=== PATIENT | male | born 1940 | race Caucasian/White ===

== ENCOUNTER 2017-10-25 14:30 | Emergency (ER) | payer OTHER ==
[~2017-10-25] VITALS: Ht 188 cm; Wt 110.2 kg
[~2017-10-25 14:30] MED LIST: ALPRTAB PO; HYT/2 PO; PROP10TA7 PO; SIMV20TA5 PO
[2017-10-25 14:47] VITALS: TEMP 36.6; Ht 188 cm; Wt 110.2 kg
[2017-10-25 15:22] LABS: BASO % 0.5 %; BASO ABS # 0.03 K/uL (0-0.2); COMPLETE YES; EOS % 4.4 %; HEMATOCRIT 43.1 % (42-52); LYMPH ABS # 1.83 K/uL (1.2-3.4); MEAN CELL VOLUME 87.6 fL (80-100); MEAN CORPUSCULAR HEMOGLOBIN 30.1 pg (25-34); MEAN CORPUSCULAR HGB CONC 34.3 g/dl (32-36); MEAN PLATELET VOLUME 10.2 fL (7.4-10.4); MONO % 7.9 %; NEUT % 55.2 %; PLATELET COUNT 157 K/uL (130-400); RED BLOOD COUNT 4.92 M/uL (4.7-6.1); WHITE BLOOD COUNT 5.72 K/uL (4.8-10.8)
--- NOTE | 2017-10-25 15:24 | DIAGNOSTIC IMAGING REPORT ---
CHEST ONE VIEW PORTABLE CLINICAL HISTORY: EVALUATE ALTERED MENTAL STATUS/WEAKNESS dyspnea COMPARISON STUDY: No previous studies for comparison. FINDINGS: Small parenchymal infiltrate left base. Mild emphysematous change. Slight peribronchial thickening possibly chronic. Diaphragms smooth. No evidence for cardiac enlargement. IMPRESSION: Small parenchymal infiltrate versus atelectasis left base. The above report was generated using voice recognition software. It may contain grammatical, syntax or spelling errors. Electronically signed by: Shoaib Dunn M.D. 10/25/2017 3:23 PM Dictated Date/Time: 10/25/2017 3:22 PM
[2017-10-25 15:30] LABS: PROTHROMBIN TIME (PATIENT) 10.9 SECONDS (9.0-12.0)
[2017-10-25] MEDS ORDERED: SODIUM CHLORIDE 0.9% 1000ML 1,000 ML IV STA (15:37)
[2017-10-25 15:40] LABS: ALT/SGPT 22 U/L (12-78); BLOOD UREA NITROGEN 18 mg/dl (7-18); BUN/CREATININE RATIO 14.2 (10-20); CALCIUM 8.9 mg/dl (8.5-10.1); CARBON DIOXIDE 26 mmol/L (21-32); CHLORIDE 104 mmol/L (98-107); CREATININE 1.25 mg/dl (0.60-1.40); GLUCOSE 166 mg/dl (70-99); MAGNESIUM 2.1 mg/dl (1.8-2.4); POTASSIUM 4.2 mmol/L (3.5-5.1); SODIUM 138 mmol/L (136-145)
--- NOTE | 2017-10-25 15:49 | EMERGENCY ROOM VISIT NOTE ---
History Report prepared by Jovani: Dottie Galvez Under the Supervision of: Dr. Mir Curry D.O. First contact with patient: 15:06 Chief Complaint: DIZZY Stated Complaint: DIZZINESS, NUMBNESS IN FACE ON LEFT Nursing Triage Summary: patient with veritgo and started meclizine. patient states he continues to have to veritgo and when he standing he feels "retarded" states he did not start having the verigo until her started taking xanax 1mg. did not take any last night to see if he was better with out it, no better this am. complains of numbness in the face as well. History of Present Illness The patient is a 77 year old male who presents to the Emergency Room with complaints of intermittent dizziness starting 1 month ago. The patient called his PCP and was told to go to the ED. The patient states that when he stands up , he cannot walk. He feels like he needs to put out his arms to support himself. This does not occur every day. He has never had this before. He feels that this started after his Xanax prescription was changed from 1.5 mg to 0.5 mg. He takes 1 mg at night and 0.5 mg in the morning. He has some left facial numbness at times. He denies any room spinning. He does not feel weak more on one side. He denies any headache, leg swelling or pain, abdominal pain. He does use smokeless tobacco. He has meclizine at home to take as needed. He has ringing in his ears all the time. Source of History: patient Onset: 1 month ago Position: other (global) Quality: other (dizziness) Timing: intermittent Modifying Factors (Worsening): other (standing up) Associated Symptoms: + numbness, No headache, No abdominal pain, No weakness Note: Pt denies leg swelling/pain. Review of Systems See HPI for pertinent positives & negatives. A total of 10 systems reviewed and were otherwise negative. Past Medical & Surgical Medical Problems: (1) High cholesterol Family History No pertinent family history stated. Social History Smoking Status: Former Smoker Smokeless Tobacco Use: Yes Marital Status: in relationship Occupation Status: retired Current/Historical Medications Scheduled Alprazolam (Alprazolam Xr), 0.5 MG PO QAM Alprazolam (Alprazolam Xr), 1 MG PO HS Propranolol (Inderal), 10 MG PO BID Simvastatin (Zocor), 20 MG PO HS Terazosin Hcl (Hytrin), 2 MG PO HS Scheduled PRN Meclizine Hcl (Meclizine Hcl), 25 MG PO TID PRN for Dizziness or Vertigo Allergies Coded Allergies: Aspirin (Verified Allergy, Intermediate, GI UPSET, 10/25/17) Physical Exam Vital Signs Date Time Temp Pulse Resp B/P (MAP) Pulse Ox O2 Delivery O2 Flow Rate FiO2 10/25/17 18:27 68 18 122/89 97 10/25/17 17:24 55 18 155/82 97 Room Air 10/25/17 16:12 52 10/25/17 15:54 56 16 139/80 96 Room Air 10/25/17 15:31 151/82 147/83 99/63 10/25/17 15:16 Room Air 10/25/17 15:16 Room Air 10/25/17 14:47 36.6 73 20 165/116 96 Room Air Physical Exam GENERAL: Patient is awake, alert, and in no acute distress. Patient is resting comfortably and showing no signs of anxiety EYES: The conjunctivae are clear. The pupils are round and reactive. EARS, NOSE, MOUTH AND THROAT: The nose is without any evidence of any deformity. Mucous membranes are moist tongue is midline NECK: The neck is nontender and supple. RESPIRATORY: Normal respiratory effort is noted there is no evidence of wheezing rhonchi or rales CARDIOVASCULAR: Regular rate and rhythm noted there no murmurs rubs or gallops normal S1 normal S2 GASTROINTESTINAL: The abdomen is soft. Bowel sounds are present in all quadrants. Abdomen is nontender MUSCULOSKELETAL/EXTREMITIES: There is no evidence of gross deformity full range of motion is noted in the hips and shoulders SKIN: There is trace pedal edema bilaterally. NEUROLOGIC: Patient is awake alert and oriented x3 strength is symmetric patellar reflexes are 2+ bilaterally Medical Decision & Procedures ER Provider Diagnostic Interpretation: X-ray results as stated below per interpretation by me and the radiologist. Radiology results as stated below per my review and radiologist interpretation: CHEST ONE VIEW PORTABLE CLINICAL HISTORY: EVALUATE ALTERED MENTAL STATUS/WEAKNESS dyspnea COMPARISON STUDY: No previous studies for comparison. FINDINGS: Small parenchymal infiltrate left base. Mild emphysematous change. Slight peribronchial thickening possibly chronic. Diaphragms smooth. No evidence for cardiac enlargement. IMPRESSION: Small parenchymal infiltrate versus atelectasis left base. The above report was generated using voice recognition software. It may contain grammatical, syntax or spelling errors. Electronically signed by: Shoaib Dunn M.D. 10/25/2017 3:23 PM Dictated Date/Time: 10/25/2017 3:22 PM HEAD WITHOUT CONTRAST (CT) CLINICAL HISTORY: 77 years-old Male with EVALUATE ALTERED MENTAL STATUS/WEAKNESS. Acute altered mental status with dizziness TECHNIQUE: Multiple axial CT images of the head were obtained without contrast. A dose lowering technique was utilized adhering to the principles of ALARA. CT DOSE: 835.71 mGycm COMPARISON: None. FINDINGS: No acute intracranial hemorrhage, midline shift, mass, large territorial ischemia or abnormal extra-axial collection. There is mild atrophy. Ill-defined areas of low attenuation within the subcortical white matter suggests chronic microvascular ischemic changes. The calvarium is intact. The mastoid air cells, and middle ear cavities are clear. There is mild mucosal thickening of the ethmoid and maxillary sinuses. 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 Soft tissues are unremarkable. IMPRESSION: No acute intracranial abnormality. The above report was generated using voice recognition software. It may contain grammatical, syntax or spelling errors. Electronically signed by: Alverto Cavanaugh M.D. 10/25/2017 5:02 PM Dictated Date/Time: 10/25/2017 5:[address] AND PELVIS CT WITHOUT CONTRAST CT DOSE: 1353.86 mGycm HISTORY: Acute dizziness dizzy TECHNIQUE: Multiaxial CT images of the abdomen and pelvis were performed without contrast. A dose lowering technique was utilized adhering to the principles of ALARA. COMPARISON STUDY: None. FINDINGS: Subsegmental groundglass and consolidative opacities of the inferior segment lingula suggest atelectasis and/or scarring. Mild dependent subsegmental bibasilar atelectasis. No pneumoperitoneum or pneumatosis identified. The imaged inferior cardiac chambers are mildly enlarged. Evaluation of the solid abdominal organs is limited without use of IV contrast. The liver, spleen, pancreas and right adrenal gland are unremarkable. There is an indeterminate soft tissue attenuating lesion of the left adrenal gland, 1.2 x 1.3 cm. Gallbladder is contracted. Low attenuating lesions of the kidneys bilaterally suggests cysts, largest measuring 8.8 x 6.5 cm within the interpolar left kidney. No renal calculi or hydronephrosis. Ureters and urinary bladder are unremarkable. Prostate is mildly enlarged. Moderate atherosclerosis of the aorta. Ectasia of the infrarenal abdominal aorta measures 2.7 x 2.7 cm. There is no bulky adenopathy identified. There is no bowel obstruction or focal bowel wall thickening. Moderate sigmoid diverticulosis without diverticulitis. Moderate stool volume suggests constipation. The appendix appears normal. Soft tissues are unremarkable. The bones appear intact. Degenerative changes are seen within the spine and hips. IMPRESSION: 1. No acute intra-abdominal or intrapelvic abnormality identified. Normal appendix. 2. Moderate sigmoid colon diverticulosis without diverticulitis. 3. Indeterminate 1.3 cm soft tissue attenuating left adrenal lesion. 4. Prostamegaly. 5. Additional findings as above. Electronically signed by: Alverto Cavanaugh M.D. 10/25/2017 5:17 PM Dictated Date/Time: 10/25/2017 5:11 PM Laboratory Results 10/25/17 15:08 Red Blood Count 4.92, Mean Corpuscular Volume 87.6, Mean Corpuscular Hemoglobin 30.1, Mean Corpuscular Hemoglobin Concent 34.3, Mean Platelet Volume 10.2, Neutrophils (%) (Auto) 55.2, Lymphocytes (%) (Auto) 32.0, Monocytes (%) (Auto) 7.9, Eosinophils (%) (Auto) 4.4, Basophils (%) (Auto) 0.5, Neutrophils # (Auto) 3.16, Lymphocytes # (Auto) 1.83, Monocytes # (Auto) 0.45, Eosinophils # (Auto) 0.25, Basophils # (Auto) 0.03 10/25/17 15:08 Test 10/25/17 15:08 10/25/17 16:00 White Blood Count 5.72 K/uL (4.8-10.8) Red Blood Count 4.92 M/uL (4.7-6.1) Hemoglobin 14.8 g/dL (14.0-18.0) Hematocrit 43.1 % (42-52) Mean Corpuscular Volume 87.6 fL (80-100) Mean Corpuscular Hemoglobin 30.1 pg (25-34) Mean Corpuscular Hemoglobin Concent 34.3 g/dl (32-36) Platelet Count 157 K/uL (130-400) Mean Platelet Volume 10.2 fL (7.4-10.4) Neutrophils (%) (Auto) 55.2 % Lymphocytes (%) (Auto) 32.0 % Monocytes (%) (Auto) 7.9 % Eosinophils (%) (Auto) 4.4 % Basophils (%) (Auto) 0.5 % Neutrophils # (Auto) 3.16 K/uL (1.4-6.5) Lymphocytes # (Auto) 1.83 K/uL (1.2-3.4) Monocytes # (Auto) 0.45 K/uL (0.11-0.59) Eosinophils # (Auto) 0.25 K/uL (0-0.5) Basophils # (Auto) 0.03 K/uL (0-0.2) RDW Standard Deviation 41.7 fL (36.4-46.3) RDW Coefficient of Variation 13.1 % (11.5-14.5) Immature Granulocyte % (Auto) 0.0 % Immature Granulocyte # (Auto) 0.00 K/uL (0.00-0.02) Prothrombin Time 10.9 SECONDS (9.0-12.0) Prothromb Time International Ratio 1.0 (0.9-1.1) Activated Partial Thromboplast Time 26.1 SECONDS (21.0-31.0) Partial Thromboplastin Ratio 1.0 Anion Gap 8.0 mmol/L (3-11) Est Creatinine Clear Calc Drug Dose 65.4 ml/min Estimated GFR () 64.0 Estimated GFR (Non- 55.2 BUN/Creatinine Ratio 14.2 (10-20) Calcium Level 8.9 mg/dl (8.5-10.1) Magnesium Level 2.1 mg/dl (1.8-2.4) Total Bilirubin 0.5 mg/dl (0.2-1) Direct Bilirubin 0.1 mg/dl (0-0.2) Aspartate Amino Transf (AST/SGOT) 18 U/L (15-37) Alanine Aminotransferase (ALT/SGPT) 22 U/L (12-78) Alkaline Phosphatase 74 U/L (45-117) Troponin I < 0.015 ng/ml (0-0.045) Total Protein 7.6 gm/dl (6.4-8.2) Albumin 3.8 gm/dl (3.4-5.0) Thyroid Stimulating Hormone (TSH) 0.663 uIu/ml (0.300-4.500) Urine Color YELLOW Urine Appearance CLEAR (CLEAR) Urine pH 6.0 (4.5-7.5) Urine Specific Barry 1.017 (1.000-1.030) Urine Protein NEG (NEG) Urine Glucose (UA) NEG (NEG) Urine Ketones NEG (NEG) Urine Occult Blood NEG (NEG) Urine Nitrite NEG (NEG) Urine Bilirubin NEG (NEG) Urine Urobilinogen NEG (NEG) Urine Leukocyte Esterase TRACE (NEG) Urine WBC (Auto) 1-5 /hpf (0-5) Urine RBC (Auto) 0-4 /hpf (0-4) Urine Hyaline Casts (Auto) 0 /lpf (0-5) Urine Epithelial Cells (Auto) 20-30 /lpf (0-5) Urine Bacteria (Auto) NEG (NEG) Laboratory results per my review. Medications Administered Medications (Trade) Dose Ordered Sig/Manuela Route Start Time Stop Time Status Last Admin Dose Admin Sodium Chloride 1,000 ml @ 999 mls/hr Q1H1M STAT IV 10/25/17 15:37 10/25/17 16:37 DC 10/25/17 15:54 999 MLS/HR ECG Indication: other (dizziness) Rate (beats per minute): 64 Rhythm: normal sinus Findings: no ectopy, other (no acute ST segment abnormality) ED Course 1507: The patient was evaluated in room A10. A complete history and physical examination were performed. 1537: NSS 1000 ml @ 999 mls/hr IV. 1626: I reevaluated the patient. 1655: I reevaluated the patient. 1725: I reevaluated the patient. 1803: Upon reevaluation, the patient is feeling better. I discussed the results and treatment plan with him. He verbalized agreement of the treatment plan. He was discharged home. Medical Decision Prior records/ancillary studies reviewed. Triage Nursing notes reviewed. The patient's history was concerning for dizziness and vertigo. Differential diagnosis: Etiologies such as benign positional vertigo, dehydration, hypovolemia, anemia, tumor, infection, hypoglycemia, electrolyte abnormalities, cardiac sources, intracerebral event, toxicologic, neurologic, as well as others were entertained. The patient is a 77-year-old male who presented to the emergency department for evaluation of dizziness. The patient appeared to have near syncope and when he had orthostatic vitals taken he did have significant symptoms as well as a drop in his blood pressure. The patient states that he may have had some changes in his blood pressure medications recent. The patient was treated with IV fluids in the emergency department and was feeling much better. He did have some abdominal pain I was concerned it could be some abnormality noted on CT a noncontrast CT was obtained to ensure there was no intra-abdominal cause for his orthostasis. The patient was reevaluated multiple times. His chest x-ray showed a questionable area of infiltrate but he has no cough fever or elevated white blood cell counts I do not feel this is consistent with a pneumonia. I discussed the patient's laboratory radiographic studies with him. He was encouraged to drink plenty clear liquids and call his family doctor in the morning. He was also encouraged to continue all medications as prescribed and return to the emergency department immediately symptoms change worsen or the need arises. Medication Reconcilliation Current Medication List: was personally reviewed by me Impression Primary Impression: Dizziness Additional Impression: Orthostatic hypotension Scribe Attestation The scribe's documentation has been prepared under my direction and personally reviewed by me in its entirety. I confirm that the note above accurately reflects all work, treatment, procedures, and medical decision making performed by me. Departure Information Dispostion Home / Self-Care Referrals Kishor Molina M.D. Forms HOME CARE DOCUMENTATION FORM, IMPORTANT VISIT INFORMATION Patient Instructions ED Hypotension Orthostatic, My [facility] Additional Instructions Continue all medications as prescribed. Drink plenty clear liquids. Rest and avoid any strenuous activity. Follow-up with your family this week for reevaluation. Return to the emergency department immediately if symptoms change worsen or the need arises. Problem Qualifiers
[2017-10-25 15:51] LABS: ALKALINE PHOSPHATASE 74 U/L (45-117); AST/SGOT 18 U/L (15-37); THYROID STIMULATING HORMONE 0.663 uIu/ml (0.300-4.500)
[2017-10-25] MEDS ORDERED: MECL1TAB42 PO (16:02)
[2017-10-25 16:13] LABS: URINE APPEARANCE CLEAR (CLEAR); URINE BILIRUBIN NEG (NEG); URINE COLOR YELLOW; URINE EPITHELIAL CELL AUTO 20-30 /lpf (0-5); URINE NITRITE NEG (NEG); URINE SPECIFIC GRAVITY 1.017 (1.000-1.030); UROBILINOGEN NEG (NEG)
[2017-10-25 16:18] LABS: MANUAL MICROSCOPIC REQUIRED? NO; REVIEW REQ? NO
--- NOTE | 2017-10-25 17:03 | DIAGNOSTIC IMAGING REPORT ---
HEAD WITHOUT CONTRAST (CT) CLINICAL HISTORY: 77 years-old Male with EVALUATE ALTERED MENTAL STATUS/WEAKNESS. Acute altered mental status with dizziness TECHNIQUE: Multiple axial CT images of the head were obtained without contrast. A dose lowering technique was utilized adhering to the principles of ALARA. CT DOSE: 835.71 mGycm COMPARISON: None. FINDINGS: No acute intracranial hemorrhage, midline shift, mass, large territorial ischemia or abnormal extra-axial collection. There is mild atrophy. Ill-defined areas of low attenuation within the subcortical white matter suggests chronic microvascular ischemic changes. The calvarium is intact. The mastoid air cells, and middle ear cavities are clear. There is mild mucosal thickening of the ethmoid and maxillary sinuses. 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 Soft tissues are unremarkable. IMPRESSION: No acute intracranial abnormality. The above report was generated using voice recognition software. It may contain grammatical, syntax or spelling errors. Electronically signed by: Alverto Cavanaugh M.D. 10/25/2017 5:02 PM Dictated Date/Time: 10/25/2017 5:00 PM
--- NOTE | 2017-10-25 17:18 | DIAGNOSTIC IMAGING REPORT ---
ABDOMEN AND PELVIS CT WITHOUT CONTRAST CT DOSE: 1353.86 mGycm HISTORY: Acute dizziness dizzy TECHNIQUE: Multiaxial CT images of the abdomen and pelvis were performed without contrast. A dose lowering technique was utilized adhering to the principles of ALARA. COMPARISON STUDY: None. FINDINGS: Subsegmental groundglass and consolidative opacities of the inferior segment lingula suggest atelectasis and/or scarring. Mild dependent subsegmental bibasilar atelectasis. No pneumoperitoneum or pneumatosis identified. The imaged inferior cardiac chambers are mildly enlarged. Evaluation of the solid abdominal organs is limited without use of IV contrast. The liver, spleen, pancreas and right adrenal gland are unremarkable. There is an indeterminate soft tissue attenuating lesion of the left adrenal gland, 1.2 x 1.3 cm. Gallbladder is contracted. Low attenuating lesions of the kidneys bilaterally suggests cysts, largest measuring 8.8 x 6.5 cm within the interpolar left kidney. No renal calculi or hydronephrosis. Ureters and urinary bladder are unremarkable. Prostate is mildly enlarged. Moderate atherosclerosis of the aorta. Ectasia of the infrarenal abdominal aorta measures 2.7 x 2.7 cm. There is no bulky adenopathy identified. There is no bowel obstruction or focal bowel wall thickening. Moderate sigmoid diverticulosis without diverticulitis. Moderate stool volume suggests constipation. The appendix appears normal. Soft tissues are unremarkable. The bones appear intact. Degenerative changes are seen within the spine and hips. IMPRESSION: 1. No acute intra-abdominal or intrapelvic abnormality identified. Normal appendix. 2. Moderate sigmoid colon diverticulosis without diverticulitis. 3. Indeterminate 1.3 cm soft tissue attenuating left adrenal lesion. 4. Prostamegaly. 5. Additional findings as above. Electronically signed by: Alverto Cavanaugh M.D. 10/25/2017 5:17 PM Dictated Date/Time: 10/25/2017 5:11 PM
[2017-10-25 18:27] VITALS: BP 122/89; PULSE 68; O2SAT 97
== END 2017-10-25 18:29 | disposition home or self-care (01) ==
LOC: C.EDB 14:33 → C.EDA 18:29
DX: R42 Dizziness and giddiness (principal); I95.2 Hypotension due to drugs; E78.00 Pure hypercholesterolemia, unspecified; Z87.891 Personal history of nicotine dependence; Z79.899 Other long term (current) drug therapy

== ENCOUNTER → 2017-11-06 | Day surgery (SDC) | payer OTHER ==
[2017-10-18 13:35] VITALS: Ht 189.2 cm; Wt 110.5 kg
[~2017-11-06] VITALS: Ht 189.2 cm; Wt 110.5 kg
[~2017-11-06] MED LIST changes: +500ML BSS 0.3ML EPI 1:1000PF IRRIG ONE; +ACETAMINOPHEN 325 MG TAB PO PRN; +AMVISC PLUS 0.8ML SYRINGE INT OCU ONE; +ATROPINE SULFATE 0.1 MG/ML 5ML SYR IV PRN; +BRIMONIDINE TART 0.2% OP SOLN PER DROP CHARGE ONE; +BRIMONIDINE TARTRATE 0.2% 5ML ONE; +BSS FLUSH ONE; +ENDOCOAT 0.85ML SYRINGE INT OCU ONE; +EpHEDrine SULFATE INJ 50 MG/ML AMP IV PRN; +EpINEphrine INJ 1MG/ML AMP 1 MG/ML AMP ONE; +LACTATED RINGER'S 1000ML 500 ML IV SCH; +LIDOCAINE 4% OP SOLN DROP CHARGE ONE; +LIDOCAINE 4% OP SOLN DROP CHARGE OPL SCH; +LIDOCAINE HCL 1% MPF 2 ML VIAL ONE; +MECL1TAB42 PO; +MIDAZOLAM HCL 1 MG/ML 2ML VIAL ONE; +MIX: 3ML BSS AND 1ML EPI(PF) TOP ONE; +MOXIFLOXACIN OPH SOLN PER DROP CHARGE ONE; +ONDANSETRON INJ 2 MG/ML 2 ML VIAL IV PRN; +POVIDONE-IODINE OP SOLN 30 ML BTL ONE; +PROPARACAINE 0.5% OP SOLN PER DROP CHARGE OPL SCH; +TOBRAMYCIN/DEXAMETHASONE OPH OINT PER APPLN CHARGE ONE
[2017-11-06] MEDS: PHENYLEPHRINE HCL 2.5% OP SOLN PER DROP CHARGE OPL SCH ×2 (12:06→12:11)
[2017-11-06] MEDS: TROPICAMIDE 1% OP SOLN PER DROP CHARGE OPL SCH ×2 (12:07→12:12)
[2017-11-06] MEDS: CYCLOPENTOLATE HCL 1% OP SOLN PER DROP CHARGE OPL SCH ×2 (12:08→12:12)
[2017-11-06] MEDS: KETOROLAC 0.5% OP SOLN PER DROP CHARGE OPL SCH ×2 (12:09→12:13)
[2017-11-06] MEDS: MOXIFLOXACIN OPH SOLN PER DROP CHARGE OPL SCH ×2 (12:10→12:22)
--- NOTE | 2017-11-06 13:05 | History & Physical Bridge - SC ---
H&P Re-Evaluation Bridge Note: I have examined the patient, reviewed the History & Physical and in the interval since the performance of the History & Physical I have noted the following changes of clinical significance: No changes noted
--- NOTE | 2017-11-06 13:54 | Discharge Instructions-SurgCtr ---
Discharge Instructions Date of Service Nov 06, 2017. Visit Reason for Visit: Left Cataract Discharge Discharge Diagnosis / Problem: cataract left eye Discharge Goals Goal(s): Improve function Activity Recommendations Activity Limitations: per Instructions/Follow-up section Lifting Limitations: no more than 5 pounds Anesthesia . Post Anesthesia Instructions: If you have had General Anesthesia or IV Sedation: * Do not drive today. * Resume driving when surgeon permits. * Do not make important decisions or sign legal documents today. * Call surgeon for: 1. Temperature elevations greater than 101 degrees F. 2. Uncontrollable pain. 3. Excessive bleeding. 4. Persistent nausea and vomiting. 5. Medication intolerance (nausea, vomiting or rash). * For nausea and vomiting use only clear liquids such as: tea, soda, bouillon until nausea subsides, then gradually increase diet as tolerated. * If you have any concerns or questions, call your surgeon's office. If physician is unavailable and it is an emergency, call 911 or go to the nearest emergency room. . Instructions / Follow-Up Instructions / Follow-Up ACTIVITY RECOMMENDATIONS: * Light activities * You may walk outside, read, watch television. * Mild irritation and blurred vision are common for the first few days, redness around the white part of the eye is common. MEDICATIONS: Resume previous medications unless instructed otherwise by your surgeon. Eye drops (today and tomorrow): Polytrim - one drop in operative eye every 2 hours while awake Prednisolone 1% - one drop in operative eye every 2 hours while awake Ilevro - one drop operative eye 1 times daily SPECIAL CARE INSTRUCTIONS: * If any problems or concerns, please call Dr. Parnell's office at . * Keep plastic shield taped over eye to sleep at night. * Keep plastic shield taped over eye except to administer eye drops. * Keep plastic shield on until office visit the following day. FOLLOW UP VISIT: Follow-up with Dr. Parnell in the [place] office as scheduled. If not already scheduled, please call the office at . Diet Recommendations Home Diet: resume previous diet Procedures Procedures Performed: Left Cataract Phacoemulsification With Intraocular Lens Implant Pending Studies Studies pending at discharge: no Medical Emergencies . Who to Call and When: Medical Emergencies: If at any time you feel your situation is an emergency, please call 911 immediately. . Non-Emergent Contact Non-Emergency issues call your: Ambulance Driver Paramedic . . "Provider Documentation" section prepared by John Parnell. .
[2017-11-06 13:55] VITALS: TEMP 36.5
--- NOTE | 2017-11-06 13:55 | [facility] Operative Report ---
Operative Report Operative Date Nov 06, 2017. Pre-Operative Diagnosis Cataract Left Eye Post-Operative Diagnosis Same Procedure(s) Performed Left Cataract Phacoemulsification With Intraocular Lens Implant Surgeon Dr. Parnell Offset Printing Operator Surgeon(s) None Estimated Blood Loss 0 Findings cataract left eye Fluids (cc crystalloids) see anesthesia record Specimens None Drains none Anesthesia local with sedation Complication(s) None Disposition Recovery Room / PACU Implants [id number] 24.5 Indications decreased vision left eye Description of Procedure After informed consent was obtained in the holding area the patient was wheeled back to the operating room where cardiac monitoring leads and oxygen by nasal cannula was administered by Anesthesia. Gentle IV sedation was given, and the patient's left eye was prepped and draped in usual sterile fashion. A wire lid speculum was placed into the left eye and the operating microscope was swung into position. Using 0.12 forceps and a MVR blade a paracentesis port was made 2 o'clock hours away from the 3 o'clock position of the patient's left eye. 1% non-preserved Lidocaine was then injected into the anterior chamber for anesthesia. A 2.0 mm keratotome blade was then used to make a shelved clear corneal incision at the 3 o'clock position of the left eye. Amvisc was injected into the anterior chamber and a cystotome and Utrata forceps were used to perform a curvilinear capsulorrhexis. BSS on a hydrodissection cannula was used to hydrodissect the lens nucleus away from the capsular bag. The phacoemulsification handpiece was then used in a stop and chop fashion to remove the lens nucleus. The irrigation and aspiration handpiece was then used to remove the residual cortical material. Amvisc was injected into the capsular bag and anterior chamber and a [employer] MX60 24.5 Diopter intraocular lens was injected into the capsular bag. Irrigation and aspiration handpiece was used to remove the residual viscoelastic material. The wounds were hydrated and noted to be watertight. The wire lid speculum was removed from the eye. Vigamox, Brimonidine, and TobraDex ointment were placed on the eye and it was shielded. It should be noted that EndoCoat was used extensively during the case to protect the cornea endothelium. DISPOSITION: The patient tolerated the procedure well and was wheeled to the post anesthesia care unit in stable condition. I attest to the content of the Intraoperative Record and any orders documented therein. Any exceptions are noted below. I attest to the content of the Intraoperative Record and any orders documented therein. Any exceptions are noted below.
--- NOTE | 2017-11-06 14:23 | Anesthesia Progress Nt - [facility] ---
Anesthesia Post Op Note Date & Time Nov 06, 2017 at 14:23 Vital Signs Pain Intensity: 0 Vital Signs Past 12 Hours Date Time Temp Pulse Resp B/P (MAP) Pulse Ox O2 Delivery O2 Flow Rate FiO2 11/06/17 13:55 36.5 55 18 158/78 (104) 97 Room Air 11/06/17 11:58 36.4 54 18 128/83 (98) 96 Room Air Notes Mental Status: alert / awake / arousable, participated in evaluation Pt Amnestic to Procedure: Yes Nausea / Vomiting: adequately controlled Pain: adequately controlled Airway Patency, RR, SpO2: stable & adequate BP & HR: stable & adequate Hydration State: stable & adequate Anesthetic Complications: no major complications apparent
[2017-11-06 14:24] VITALS: BP 127/80; PULSE 56; O2SAT 96
== END | disposition home or self-care (01) ==
LOC: X.SURG 11:45
PROVIDERS: ATTEND Ophthalmology
DX: H26.9 Unspecified cataract (principal); F41.9 Anxiety disorder, unspecified; Z87.891 Personal history of nicotine dependence

== ENCOUNTER → 2017-11-22 | Day surgery (SDC) | payer OTHER ==
[2017-11-15 10:02] VITALS: Ht 189.2 cm; Wt 110.5 kg
[~2017-11-22] VITALS: Ht 189.2 cm; Wt 110.5 kg
[~2017-11-22] MED LIST changes: -BRIMONIDINE TARTRATE 0.2% 5ML ONE; +FENTANYL CITRATE INJ 50 MCG/1 ML 2 ML VIAL IV PRN; +FLUMAZENIL 0.1 MG/1 ML 10 ML VIAL IV PRN; +HYDROmorphone INJ 2 MG/ML SYR/VIAL IV PRN; +LABETALOL HCL IV 5 MG/ML 20ML IV PRN; -LIDOCAINE 4% OP SOLN DROP CHARGE OPL SCH; +LIDOCAINE 4% OP SOLN DROP CHARGE OPR SCH; +MEPERIDINE HCL 25 MG/ML CARP IV PRN; +NALOXONE HCL 0.4 MG/1 ML VIAL/CARP IV PRN; +PHENYLEPHRINE 100MCG/ML 5ML SYR IV PRN; -PROPARACAINE 0.5% OP SOLN PER DROP CHARGE OPL SCH; +PROPARACAINE 0.5% OP SOLN PER DROP CHARGE OPR SCH
[2017-11-22] MEDS: PHENYLEPHRINE HCL 2.5% OP SOLN PER DROP CHARGE OPR SCH ×2 (10:22→10:27)
[2017-11-22] MEDS: TROPICAMIDE 1% OP SOLN PER DROP CHARGE OPR SCH ×2 (10:23→10:28)
[2017-11-22] MEDS: CYCLOPENTOLATE HCL 1% OP SOLN PER DROP CHARGE OPR SCH ×2 (10:24→10:29)
[2017-11-22] MEDS: KETOROLAC 0.5% OP SOLN PER DROP CHARGE OPR SCH ×2 (10:25→10:30)
[2017-11-22] MEDS: MOXIFLOXACIN OPH SOLN PER DROP CHARGE OPR SCH ×2 (10:26→10:36)
--- NOTE | 2017-11-22 11:57 | Discharge Instructions-[facility]Ctr ---
Discharge Instructions Date of Service Nov 22, 2017. Visit Reason for Visit: Cataract Right Eye Discharge Discharge Diagnosis / Problem: cataract right eye Discharge Goals Goal(s): Improve function Activity Recommendations Activity Limitations: per Instructions/Follow-up section Lifting Limitations: no more than 5 pounds Anesthesia . Post Anesthesia Instructions: If you have had General Anesthesia or IV Sedation: * Do not drive today. * Resume driving when surgeon permits. * Do not make important decisions or sign legal documents today. * Call surgeon for: 1. Temperature elevations greater than 101 degrees F. 2. Uncontrollable pain. 3. Excessive bleeding. 4. Persistent nausea and vomiting. 5. Medication intolerance (nausea, vomiting or rash). * For nausea and vomiting use only clear liquids such as: tea, soda, bouillon until nausea subsides, then gradually increase diet as tolerated. * If you have any concerns or questions, call your surgeon's office. If physician is unavailable and it is an emergency, call 911 or go to the nearest emergency room. . Instructions / Follow-Up Instructions / Follow-Up ACTIVITY RECOMMENDATIONS: * Light activities * You may walk outside, read, watch television. * Mild irritation and blurred vision are common for the first few days, redness around the white part of the eye is common. MEDICATIONS: Resume previous medications unless instructed otherwise by your surgeon. Eye drops (today and tomorrow): Polytrim - one drop in operative eye every 2 hours while awake Prednisolone 1% - one drop in operative eye every 2 hours while awake Ilevro - one drop operative eye 1 times daily SPECIAL CARE INSTRUCTIONS: * If any problems or concerns, please call Dr. Parnell's office at . * Keep plastic shield taped over eye to sleep at night. * Keep plastic shield taped over eye except to administer eye drops. * Keep plastic shield on until office visit the following day. FOLLOW UP VISIT: Follow-up with Dr. Parnell in the [place] office as scheduled. If not already scheduled, please call the office at . Diet Recommendations Home Diet: resume previous diet Procedures Procedures Performed: Right Eye Cataract Phacoemulsification With Intraocular Lens Implant Pending Studies Studies pending at discharge: no Medical Emergencies . Who to Call and When: Medical Emergencies: If at any time you feel your situation is an emergency, please call 911 immediately. . Non-Emergent Contact Non-Emergency issues call your: Letterer . . "Provider Documentation" section prepared by John Parnell. .
--- NOTE | 2017-11-22 11:59 | [facility] Operative Report ---
Operative Report Operative Date Nov 22, 2017. Pre-Operative Diagnosis Right Eye Cataract Post-Operative Diagnosis Same Procedure(s) Performed Right Eye Cataract Phacoemulsification With Intraocular Lens Implant Surgeon Dr. Parnell Head Of Precision Targeting Surgeon(s) None Estimated Blood Loss None Findings cataract right eye Fluids (cc crystalloids) see anesthesia record Specimens None Drains none Anesthesia local with sedation Complication(s) None Disposition Recovery Room / PACU Implants mx60 25.0 Indications decreased vision right eye Description of Procedure After informed consent was obtained in the holding area the patient was wheeled back to the operating room where cardiac monitoring leads and oxygen by nasal cannula was administered by Anesthesia. Gentle IV sedation was given, and the patient's right eye was prepped and draped in usual sterile fashion. A wire lid speculum was placed into the right eye and the operating microscope was swung into position. Using 0.12 forceps and a Supersharp blade a paracentesis port was made 2 o'clock hours away from the 9 o'clock position of the patient's right eye. 1% non-preserved Lidocaine was then injected into the anterior chamber for anesthesia. Flomax mix was injected into the eye. A 2.0 mm keratotome blade was then used to make a shelved clear corneal incision at the 9 o'clock position of the right eye. Amvisc was injected into the anterior chamber and a cystotome and Utrata forceps were used to perform a curvilinear capsulorrhexis. BSS on a hydrodissection cannula was used to hydrodissect the lens nucleus away from the capsular bag. The phacoemulsification handpiece was then used in a stop and chop fashion to remove the lens nucleus. The irrigation and aspiration handpiece was then used to remove the residual cortical material. Amvisc was injected into the capsular bag and anterior chamber and a [employer] Lomb MX60 25.0 Diopter intraocular lens was injected into the capsular bag. Irrigation and aspiration handpiece was used to remove the residual viscoelastic material. The wounds were hydrated and noted to be watertight. The wire lid speculum was removed from the eye. Vigamox, Brimonidine, and TobraDex ointment were placed on the eye and it was shielded. It should be noted that EndoCoat was used extensively during the case to protect the cornea endothelium. DISPOSITION: The patient tolerated the procedure well and was wheeled to the post anesthesia care unit in stable condition. I attest to the content of the Intraoperative Record and any orders documented therein. Any exceptions are noted below. I attest to the content of the Intraoperative Record and any orders documented therein. Any exceptions are noted below.
[2017-11-22 12:00] VITALS: TEMP 36.3
--- NOTE | 2017-11-22 12:10 | Anesthesia Progress Nt - [facility] ---
Anesthesia Post Op Note Date & Time Nov 22, 2017 at 12:10 Vital Signs Pain Intensity: 0 Vital Signs Past 12 Hours Date Time Temp Pulse Resp B/P (MAP) Pulse Ox O2 Delivery O2 Flow Rate FiO2 11/22/17 12:00 36.3 54 16 139/80 (99) 98 Room Air 11/22/17 10:15 36.5 51 22 129/78 (95) 95 Room Air Notes Mental Status: alert / awake / arousable, participated in evaluation Pt Amnestic to Procedure: Yes Nausea / Vomiting: adequately controlled Pain: adequately controlled Airway Patency, RR, SpO2: stable & adequate BP & HR: stable & adequate Hydration State: stable & adequate Anesthetic Complications: no major complications apparent
[2017-11-22 12:22] VITALS: BP 133/74; PULSE 50; O2SAT 98
== END | disposition home or self-care (01) ==
LOC: X.SURG 09:51
PROVIDERS: ATTEND Ophthalmology
DX: H25.11 Age-related nuclear cataract, right eye (principal); E78.00 Pure hypercholesterolemia, unspecified; F41.9 Anxiety disorder, unspecified; E78.5 Hyperlipidemia, unspecified; R25.1 Tremor, unspecified; N40.0 Benign prostatic hyperplasia without lower urinary tract symptoms; F32.9 Major depressive disorder, single episode, unspecified; Z87.891 Personal history of nicotine dependence

== ENCOUNTER 2024-03-28 17:48 | Inpatient (IN) ==
[2024-03-28 19:04] LABS: Basophils # (auto) 0.03 K/uL (0.00-0.20); Basophils % (auto) 0.6 %; Eosinophils # (auto) 0.01 K/uL (0.00-0.50); Eosinophils % (auto) 0.2 %; Hematocrit (blood only) 48.1 % (42.0-52.0); Hemoglobin 15.9 g/dl (14.0-18.0); Immature Granulocytes # (auto) 0.04 K/uL (0.01-0.20); Immature Granulocytes % (auto) 0.8 %; Lymphocytes # (auto) 0.56 K/uL (1.20-3.40); Lymphocytes % (auto) 10.9 %; Mean Corpuscular Hemoglobin 29.8 pg (25.0-34.0); Mean Corpuscular Hgb Conc 33.1 g/dL (32.0-36.0); Mean Corpuscular Volume 90.1 fL (80.0-100.0); Mean Platelet Volume 10.9 fL (9.4-12.4); Monocytes # (auto) 0.32 K/uL (0.11-0.59); Monocytes % (auto) 6.2 %; Neutrophils # (auto) 4.19 K/uL (1.40-6.50); Neutrophils % (auto) 81.3 %; Platelet Count 153 K/uL (130-400); RDW Coefficient of Variation 13.6 % (11.5-14.5); RDW Standard Deviation 44.7 fL (36.4-46.3); Red Blood Count 5.34 M/uL (4.70-6.10); White Blood Count 5.15 K/ul (4.8-10.8)
[2024-03-28 19:09] LABS: INR 1.1 (0.9-1.1)
[2024-03-28 19:10] LABS: Alanine Aminotransferase 20 U/L (7-52); Albumin Globulin Ratio 1.3 (0.9-2); Albumin Level 4.2 gm/dl (3.4-5.0); Alkaline Phosphatase 54 U/L (34-104); Anion Gap 9 (3-11); Aspartate Aminotransferase 25 U/L (13-39); BUN Creatinine Ratio 13.8 (10-20); Bilirubin,Total 0.8 mg/dl (0.2-1.0); Blood Urea Nitrogen 20 mg/dl (6-23); Calcium 9.2 mg/dl (8.6-10.3); Carbon Dioxide 26 mmol/L (21-32); Chloride 104 mmol/L (98-107); Est GFR (African American) 51.2 ml/min; Est GFR (Non-African American) 44.2 ml/min; Globulin 3.2 gm/dl (2.5-4.0); Glucose 161 mg/dl (70-99(Fasting)); Magnesium 1.6 mg/dl (1.7-2.4); Potassium 4.1 mmol/L (3.5-5.1); Sodium 139 mmol/L (136-145); Total Protein 7.4 gm/dl (6.0-8.3)
[2024-03-28 19:16] LABS: Troponin I High Sensitivity 37.4 pg/ml (0-20)
[2024-03-28 19:25] LABS: Thyroid Stimulating Hormone 0.255 uIu/ml (0.300-4.500)
--- NOTE | 2024-03-28 19:45 | Emergency Department Note ---
Impression & Plan Encephalopathy, Weakness, Elevated troponin, Hypomagnesemia ED Provider Note NAME: SONIYA TUTTLE Jr AGE: 83 SEX: M : 1940 ARRIVES VIA: Walk-In INFORMANT: Patient, girlfriend ED PROVIDER(S): Jackson Melendez MD CHIEF COMPLAINT: Weakness MEDICAL DECISION MAKING: Patient presents due to concern for increasing weakness and fatigue. IV was established and blood work was obtained. Patient presents due to concern for increasing weakness and fatigue. IV was established and blood work was obtained. Patient was ordered IV fluids procalcitonin empiric Zosyn as a precaution along with blood cultures and lactate. Patient's blood work shows a normal white counts H&H and platelet count kidney function with creatinine 1.45. BSG 161 but nonfasting and not DKA. Magnesium low 1.6 and was ordered replete meant. Troponin 37.4 patient denies any chest pains or shortness of breath. The patient's chest x-ray does not show any obvious pneumonia and the patient denies any cough the patient does not take big deep breaths. CT head negative. I did speak with the on-call hospitalist service Dr. Khan and the patient was admitted to the medicine service. Discussion w/ other healthcare providers: Dr. Khan inpatient medicine service Prior /Outside records reviewed: I reviewed a PCP note from July 2023 with it as in a many year patient with a history of phobia anxiety and essential tremor. Patient refused a flu shot not on any medications patient also with history of CKD stage IIIa dyslipidemia and BPH. Differential diagnosis: Infection, dehydration, metabolic abnormality, hypo/hyperglycemia, electrolyte imbalance, anemia, UTI, pneumonia, thyroid dysfunction among others were considered. Diagnostics, as interpreted by me: ECG: Sinus tachycardia with PVCs, rate of 108, normal intervals, normal axis no ST elevations. Cardiac monitoring: An order was placed for continuous cardiac monitoring. The monitor shows a rate of 102 to with tachycardic and regular rhythm. Patient was placed on pulse oximetry Medical decision rules: none Imaging studies: I informally interpreted the patient's chest x-ray without obvious pneumonia or pneumothorax with formal report to follow. Informally interpreted the patient's CT head which does not show obvious ICH motion artifact noted with formal report to follow. HPI: Patient presents due to concern for chills and feeling generally unwell with associated weakness. The patient is accompanied by a friend and girlfriend. From 1 states that she last saw him on Monday and he was doing well. Patient reportedly had complained of some of the symptoms last evening states that he was chilled and had to use an electric blanket. No reported vomiting or diarrhea. Patient at bedside denies any chest pains or shortness of breath. He has had recent bowel movements. No falls or trauma. Patient's girlfriend states that he has not been as responsive or alert and has been more weak and fatigued. Patient denies any vomiting or diarrhea. No known sick contacts or any recent travel. He reportedly does not take any medications but does follow with Dr. Chauhan with [facility] PAST MEDICAL HISTORY: See Below PAST SURGICAL HISTORY: See Below SOCIAL HISTORY: See Below HOME MEDICATIONS: See Below ALLERGIES: See Below VITALS: See Below PHYSICAL EXAMINATION: GENERAL: NAD, non-toxic. EYE EXAM: Normal conjunctiva. PERRL, no anisocoria and EOM's grossly intact w/o pain. OROPHARYNX: Dry mucus membranes, grossly normal dentition. NECK: Trachea midline, no stridor. LUNGS: Diminished breath sounds bilateral bases. Normal chest wall mechanics. HEART: Tachycardic and regular, no MRG. ABDOMEN: Abdomen soft, non-tender, no masses, no rebound or guarding. BACK: No CVA TTP. SKIN: No rashes and no bruising. UPPER EXTREMITIES: Upper extremities are grossly normal. LOWER EXTREMITIES: Grossly normal, no edema. NEURO EXAM: GCS of 14 opens up eyes to voice, cranial nerves II-XII grossly intact, normal speech, moves all 4 extremities. Past Med/Surg History Medical History High cholesterol Social History Smoking Status: Unknown if ever smoked Tobacco Type: Cigarettes Hx Alcohol Use: No Hx Substance Use: No Preferred Language: Tanzanian Communication Ability: Effective Sample Maker Required: No Beliefs That Will Affect Care: None Current Living Situation: Significant Other Other Information That Helps Us Care for You: No Feels Safe at Home: Yes Safety Concerns: Feels Safe At This Time Assistive Devices: Cane and Walker Allergies Allergies Allergy/AdvReac Type Severity Reaction Status Date / Time aspirin AdvReac Intermediate GI UPSET Verified 03/28/24 21:13 Home Meds Home Medications Medication Instructions Recorded Confirmed ibuprofen 200 mg tablet (Advil) 400 mg PO DIRECTED PRN 03/28/24 03/28/24 PAIN/FEVER Previous Rx's Medication Instructions Recorded doxycycline hyclate 100 mg capsule 100 mg PO BID 8 days #16 caps 03/31/24 metoprolol succinate 25 mg 12.5 mg (1/2 x 25 mg) PO DAILY #15 03/31/24 tablet,extended release 24 hr tabs Results & Data (ED) Vital Signs Vital Signs - 24 hr 03/28/24 17:59 03/28/24 18:20 03/28/24 18:22 Pulse Rate 112 H 102 H 102 H Pulse Rate [Apical] Pulse Strength Normal Respiratory Rate 18 16 Respiratory Effort / Characteristics Non-Labored Spontaneous Respiratory Depth Normal Respiratory Pattern Regular Blood Pressure 96/64 L Blood Pressure [Right Arm] Blood Pressure Mean 74 Blood Pressure Mean [Right Arm] Blood Pressure Position Lying Pulse Oximetry 95 93 Oxygen Delivery Method Room Air Room Air Sepsis Recent Fever Within 48 Hours No Sepsis New/Unexplained Change in Mental Status No Sepsis Action Taken by Nursing No Action Required 03/28/24 18:22 03/28/24 19:00 03/28/24 19:18 Pulse Rate Pulse Rate [Apical] 103 H Pulse Strength Respiratory Rate 22 Respiratory Effort / Characteristics Respiratory Depth Normal Respiratory Pattern Blood Pressure Blood Pressure [Right Arm] 147/65 H 91/76 L Blood Pressure Mean Blood Pressure Mean [Right Arm] 92 81 Blood Pressure Position Pulse Oximetry 91 Oxygen Delivery Method Room Air Room Air Sepsis Recent Fever Within 48 Hours Sepsis New/Unexplained Change in Mental Status Sepsis Action Taken by [facility] Medications Current Medication List: was personally reviewed by me Laboratory Data Attestation: I reviewed the patient's lab results. 03/31/24 06:45 03/31/24 06:45 Lab Results 03/28/24 03/28/24 03/28/24 Range/Units 18:25 18:57 20:10 Sodium 139 (136-145) mmol/L Potassium 4.1 (3.5-5.1) mmol/L Chloride 104 (98-107) mmol/L Carbon Dioxide 26 (21-32) mmol/L Anion Gap 9 (3-11) BUN 20 (6-23) mg/dl Creatinine 1.45 H (0.6-1.4) mg/dl Est Cr Clr Drug Dosing Not Reportable Est GFR ( Amer) 51.2 ml/min Est GFR (Non-Af Amer) 44.2 ml/min BUN/Creatinine Ratio 13.8 (10-20) Glucose 161 H (70-99(Fasting)) mg/dl Lactate 1.7 (0.4-2.0) mmol/L Calcium 9.2 (8.6-10.3) mg/dl Magnesium 1.6 L (1.7-2.4) mg/dl Total Bilirubin 0.8 (0.2-1.0) mg/dl AST 25 (13-39) U/L ALT 20 (7-52) U/L Alkaline Phosphatase 54 (34-104) U/L Total Creatine Kinase (30-223) U/L Troponin I High Sens 37.4 H (0-20) pg/ml Total Protein 7.4 (6.0-8.3) gm/dl Albumin 4.2 (3.4-5.0) gm/dl Globulin 3.2 (2.5-4.0) gm/dl Albumin/Globulin Ratio 1.3 (0.9-2) TSH 0.255 L (0.300-4.500) uIu/ml Free T4 0.75 (0.61-1.60) ng/dl Adenovirus (PCR) Not Detected (NotDetected) B. pertussis DNA (PCR) Not Detected (NotDetected) B.parapertussis DNA PCR Not Detected (NotDetected) C. pneumoniae DNA (PCR) Not Detected (NotDetected) Coronavirus OC43 (PCR) Not Detected (NotDetected) Coronavirus HKU1 (PCR) Not Detected (NotDetected) Coronavirus 229E (PCR) Not Detected (NotDetected) SARS-CoV-2 (PCR) Not Detected (NotDetected) Coronavirus NL63 (PCR) Not Detected (NotDetected) Human Metapneumovir PCR Not Detected (NotDetected) Influenza Type A (PCR) Not Detected (NotDetected) Influenza Type B (PCR) Not Detected (NotDetected) M. pneumoniae (PCR) Not Detected (NotDetected) Parainfluenza 1 (PCR) Not Detected (NotDetected) Parainfluenza 2 (PCR) Not Detected (NotDetected) Parainfluenza 3 (PCR) Not Detected (NotDetected) Parainfluenza 4 (PCR) Not Detected (NotDetected) RSV (PCR) Not Detected (NotDetected) Entero/Rhino (PCR) DETECTED A (NotDetected) SARS-CoV-2, RNA, NAAT NEGATIVE (NEGATIVE) 03/28/24 Range/Units 20:33 Sodium (136-145) mmol/L Potassium (3.5-5.1) mmol/L Chloride (98-107) mmol/L Carbon Dioxide (21-32) mmol/L Anion Gap (3-11) BUN (6-23) mg/dl Creatinine (0.6-1.4) mg/dl Est Cr Clr Drug Dosing Est GFR ( Amer) ml/min Est GFR (Non-Af Amer) ml/min BUN/Creatinine Ratio (10-20) Glucose (70-99(Fasting)) mg/dl Lactate (0.4-2.0) mmol/L Calcium (8.6-10.3) mg/dl Magnesium (1.7-2.4) mg/dl Total Bilirubin (0.2-1.0) mg/dl AST (13-39) U/L ALT (7-52) U/L Alkaline Phosphatase (34-104) U/L Total Creatine Kinase 139 (30-223) U/L Troponin I High Sens 47.2 H (0-20) pg/ml Total Protein (6.0-8.3) gm/dl Albumin (3.4-5.0) gm/dl Globulin (2.5-4.0) gm/dl Albumin/Globulin Ratio (0.9-2) TSH (0.300-4.500) uIu/ml Free T4 (0.61-1.60) ng/dl Adenovirus (PCR) (NotDetected) B. pertussis DNA (PCR) (NotDetected) B.parapertussis DNA PCR (NotDetected) C. pneumoniae DNA (PCR) (NotDetected) Coronavirus OC43 (PCR) (NotDetected) Coronavirus HKU1 (PCR) (NotDetected) Coronavirus 229E (PCR) (NotDetected) SARS-CoV-2 (PCR) (NotDetected) Coronavirus NL63 (PCR) (NotDetected) Human Metapneumovir PCR (NotDetected) Influenza Type A (PCR) (NotDetected) Influenza Type B (PCR) (NotDetected) M. pneumoniae (PCR) (NotDetected) Parainfluenza 1 (PCR) (NotDetected) Parainfluenza 2 (PCR) (NotDetected) Parainfluenza 3 (PCR) (NotDetected) Parainfluenza 4 (PCR) (NotDetected) RSV (PCR) (NotDetected) Entero/Rhino (PCR) (NotDetected) SARS-CoV-2, RNA, NAAT (NEGATIVE) Administered Medications Discontinued Medications Acetaminophen (Acetaminophen 325 Mg Tab) 650 mg PO QID PRN PRN Reason: pain/fever Stop: 04/27/24 23:15 Last Admin: 03/29/24 00:15 Dose: 650 mg Documented By: MJJ Acetaminophen (Acetaminophen 325 Mg Tab) 650 mg PO Q4H PRN PRN Reason: Pain or Fever Stop: 04/28/24 00:35 Last Admin: 03/29/24 22:05 Dose: 650 mg Documented By: [id number] Admin: 03/29/24 06:03 Dose: 650 mg Documented By: EJW Doxycycline Hyclate (Doxycycline Hyclate 100 Mg Cap) 100 mg PO BID IRIS Stop: 04/08/24 20:59 Last Admin: 03/31/24 07:42 Dose: 100 mg Documented By: Admin: 03/30/24 21:19 Dose: 100 mg Documented By: Admin: 03/30/24 09:05 Dose: 100 mg Documented By: Admin: 03/29/24 21:27 Dose: 100 mg Documented By: ALBA Heparin Sodium (Porcine) (Heparin Sod 5,000 Unit/0.5 Ml Vial) 5,000 units SQ Q12 IRIS Stop: 04/29/24 20:59 Last Admin: 03/31/24 07:42 Dose: Not Given Documented By: Admin: 03/30/24 21:35 Dose: Not Given Documented By: ALBA Magnesium Sulfate/Dextrose (Magnesium Sulfate / D5w) 1 gm in 100 mls @ 100 mls/hr IV NOW STA Stop: 03/28/24 20:55 Last Infusion: 03/28/24 21:31 Dose: Infused Documented By: Admin: 03/28/24 20:27 Dose: 100 mls/hr Documented By: SPENSER Piperacillin Sod/Tazobactam Sod (Zosyn) 4.5 gm in 100 mls @ 200 mls/hr IV NOW ONE Stop: 03/28/24 20:24 Last Infusion: 03/28/24 21:32 Dose: Infused Documented By: Admin: 03/28/24 20:27 Dose: 200 mls/hr Documented By: SPENSER Albumin Human (Albumin 25%) 25 gm in 100 mls @ 50 mls/hr IV ONE ONE Stop: 03/28/24 23:46 Last Infusion: 03/29/24 01:04 Dose: Infused Documented By: Admin: 03/28/24 22:02 Dose: 50 mls/hr Documented By: MOE Promethazine HCl 6.25 mg/ (Sodium Chloride) 50.25 mls @ 201 mls/hr IV Q6H PRN PRN Reason: Nausea And Vomiting Stop: 04/27/24 23:16 Last Infusion: 03/29/24 21:51 Dose: Infused Documented By: [id number] Admin: 03/29/24 21:27 Dose: 201 mls/hr Documented By: ALBA Albumin Human (Albumin 25%) 25 gm in 100 mls @ 50 mls/hr IV ONE ONE Stop: 03/29/24 05:14 Last Infusion: 03/29/24 05:37 Dose: Infused Documented By: Admin: 03/29/24 03:28 Dose: 50 mls/hr Documented By: TELLO Doxycycline Hyclate 100 mg/ (Dextrose) 100 mls @ 50 mls/hr IV NOW STA Stop: 03/29/24 05:23 Last Infusion: 03/29/24 06:43 Dose: Infused Documented By: Admin: 03/29/24 04:09 Dose: 50 mls/hr Documented By: TELLO Albumin Human (Albumin 25%) 25 gm in 100 mls @ 50 mls/hr IV ONE ONE Stop: 03/30/24 01:13 Last Infusion: 03/30/24 01:58 Dose: Infused Documented By: [id number] Admin: 03/29/24 23:56 Dose: 50 mls/hr Documented By: [id number] Metoprolol Tartrate (Metoprolol Tartrate 25 Mg Tab) 25 mg PO NOW STA Stop: 03/28/24 23:07 Last Admin: 03/28/24 23:40 Dose: Not Given Documented By: MJJ Metoprolol Tartrate (Metoprolol Tartrate 25 Mg Tab) 25 mg PO NOW STA Stop: 03/28/24 23:08 Last Admin: 03/28/24 23:43 Dose: 25 mg Documented By: MJJ Metoprolol Tartrate (Metoprolol Tartrate 25 Mg Tab) 12.5 mg PO BID IRIS Stop: 04/28/24 08:59 Last Admin: 03/31/24 07:42 Dose: 12.5 mg Documented By: Admin: 03/30/24 21:19 Dose: 12.5 mg Documented By: Admin: 03/30/24 09:05 Dose: 12.5 mg Documented By: Admin: 03/29/24 22:04 Dose: 12.5 mg Documented By: [id number] Admin: 03/29/24 08:24 Dose: 12.5 mg Documented By: Imaging Data Radiologist's Impression: Chest X-Ray 03/28/24 18:49 XR chest 1V portable HISTORY: 83 years-old Male weakness COMPARISON: 10/25/2017 TECHNIQUE: AP view of the chest FINDINGS: Cardiac silhouette is enlarged. Pulmonary vascular congestion. No pneumothorax or large pleural effusion. Mild subsegmental bibasilar densities. Bones appear grossly intact. IMPRESSION: 1. Cardiomegaly with pulmonary vascular congestion. 2. Mild bibasilar densities favor atelectasis. ACT 112: Negative or not required by law. The above report was generated using voice recognition software. It may contain grammatical, syntax or spelling errors. Electronically signed by: Michael Cavanaugh M.D. 03/29/2024 8:[address] 03/28/24 19:55 Exam(s): CT HEAD Without Contrast EXAM: CT Head Without Intravenous Contrast CLINICAL HISTORY: Reason for exam: change in mentation. TECHNIQUE: Axial computed tomography images of the head/brain without intravenous contrast. CTDI is 36.55 mGy and DLP is 624.41 mGy-cm. Automated exposure control was utilized for the study. A dose lowering technique was utilized adhering to the principles of ALARA. COMPARISON: No relevant prior studies available. FINDINGS: Limitations: Motion artifact. Brain: Age-appropriate parenchymal volume. Gaines-white matter differentiation maintained. No hemorrhage, mass-effect, or edema. Ventricles: Unremarkable. No hydrocephalus. Bones/joints: Unremarkable. No acute fracture. Soft tissues: Unremarkable. Sinuses: Mucosal thickening and retained secretions in the right maxillary sinus, which is hypoplastic. Paranasal sinuses otherwise clear. Mastoid air cells: Chronic partial opacification of the posterior left mastoid air cells. Right mastoid air cells are clear. Orbits: Bilateral lens replacements. IMPRESSION: Limited by motion. No acute intracranial findings as visualized. Electronically signed by: Janell Warner M.D. 03/28/24 21:54 PM Discharge Plan Visit Data Chief Complaint: Leg Weakness, Bilateral Stated Complaint: TROUBLE WALKING, POOR APPETITE ED Provider: Jackson Melendez Discharge Problem: Encephalopathy, Weakness, Elevated troponin, Hypomagnesemia Patient Disposition: Admitted As Inpatient Discharge Instructions Interventions: ED Discharge Assessment Last Done: 03/29/24 21:23
[2024-03-28 20:08] LABS: T4 Free Thyroxine 0.75 ng/dl (0.61-1.60)
[2024-03-28] MEDS: PIPERACILLIN/TAZOBACTAM 4.5 GM/100 ML BAG IV ONE (20:27)
[2024-03-28] MEDS: MAGNESIUM SULFATE / D5W 1 GM/100 ML BAG IV STA (20:27)
[2024-03-28 21:15] LABS: Troponin I High Sensitivity 47.2 pg/ml (0-20)
[2024-03-28 21:26] LABS: Adenovirus PCR Not Detected (NotDetected); Bordetella parapertussis PCR Not Detected (NotDetected); Bordetella pertussis PCR Not Detected (NotDetected); Chlamydia pneumoniae PCR Not Detected (NotDetected); Coronavirus 229E PCR Not Detected (NotDetected); Coronavirus CoV-2 (COVID19)PCR Not Detected (NotDetected); Coronavirus HKU1 PCR Not Detected (NotDetected); Coronavirus NL63 PCR Not Detected (NotDetected); Coronavirus OC43PCR Not Detected (NotDetected); Human Metapneumovirus PCR Not Detected (NotDetected); Influenza A PCR Not Detected (NotDetected); Influenza B PCR Not Detected (NotDetected); Mycoplasma pneumoniae PCR Not Detected (NotDetected); Parainfluenza Virus 1 PCR Not Detected (NotDetected); Parainfluenza Virus 2 PCR Not Detected (NotDetected); Parainfluenza Virus 3 PCR Not Detected (NotDetected); Parainfluenza Virus 4 PCR Not Detected (NotDetected); Respiratory Syncytial VirusPCR Not Detected (NotDetected); Rhinovirus/Enterovirus PCR DETECTED (NotDetected)
--- NOTE | 2024-03-28 21:56 | CT Scan Report ---
Exam(s): CT HEAD Without Contrast EXAM: CT Head Without Intravenous Contrast CLINICAL HISTORY: Reason for exam: change in mentation. TECHNIQUE: Axial computed tomography images of the head/brain without intravenous contrast. CTDI is 36.55 mGy and DLP is 624.41 mGy-cm. Automated exposure control was utilized for the study. A dose lowering technique was utilized adhering to the principles of ALARA. COMPARISON: No relevant prior studies available. FINDINGS: Limitations: Motion artifact. Brain: Age-appropriate parenchymal volume. Gaines-white matter differentiation maintained. No hemorrhage, mass-effect, or edema. Ventricles: Unremarkable. No hydrocephalus. Bones/joints: Unremarkable. No acute fracture. Soft tissues: Unremarkable. Sinuses: Mucosal thickening and retained secretions in the right maxillary sinus, which is hypoplastic. Paranasal sinuses otherwise clear. Mastoid air cells: Chronic partial opacification of the posterior left mastoid air cells. Right mastoid air cells are clear. Orbits: Bilateral lens replacements. IMPRESSION: Limited by motion. No acute intracranial findings as visualized. Electronically signed by: Janell Warner M.D. 03/28/24 21:54 PM
[2024-03-28] MEDS: ALBUMIN 25% 25 GM/100 ML VIAL IV ONE (22:02)
--- NOTE | 2024-03-28 23:08 | History & Physical Report ---
Date of Service March 28, 2024 Assessment & Plan (1) Encephalopathy: Plan: Multifactorial: ARF secondary to entero/rhinovirus infection, viral sepsis Erratic blood pressure secondary to illness, BP ranging from 90-1 70s noted at the ER Troponin elevation secondary to illness in the setting of kidney dysfunction hyperlipidemia, not on maintenance medications prediabetes, hemoglobin A1c of 6.25 January 2022 past tobacco abuse Medical telemetry Baseline UA, monitor creatinine response to IVF Supportive management for viral illness. Hold off on antibiotics until definite source of bacterial infection found. Initiate low-dose beta-kanwal for now given PVCs and BP elevation Follow troponin, TTE if with progression Update hemoglobin A1c PT OT eval once medically stable DVT prophylaxis. Heparin subcu Full code as per girlfriend, Tristan Kavya Yuan. She requests updates from providers through [id number]. Text document was generated using [employer] voice recognition software. It may contain grammatical or spelling errors. Kindly contact undersigned for clarification of any documentation item in question. History of Present Illness Chief Complaint: I do not know as per patient Weakness, fatigue, confusion as per girlfriend Primary Care Provider: Dr. Molina History obtained from patient, family, and records. Limited history from patient secondary to disorientation. Medical history significant for hyperlipidemia, prediabetes, anxiety, tremors, past tobacco abuse. Patient woke up yesterday with chills and not feeling well. No chest pain, no cough, no SOB symptoms. Patient denies abdominal pain, vomiting, diarrhea symptoms. Not sure about sick contacts. Patient later noted to be more tired and somewhat confused by girlfriend. Patient brought to ER for evaluation. IV Zosyn administered at the ER. SBP 90 to 170s at the ER. Medical History as above Surgical History : None Family History : Prostate cancer, DM Personal/Social history : Past tobacco abuse, rare EtOH intake, lives with girlfriend Allergies Allergy/AdvReac Type Severity Reaction Status Date / Time aspirin AdvReac Intermediate GI UPSET Verified 03/28/24 21:13 Home Medications Medication Instructions Recorded Confirmed Type ibuprofen 200 mg tablet (Advil) 400 mg PO DIRECTED PRN 03/28/24 03/28/24 History PAIN/FEVER Past Med/Surg History Social History Smoking Status: Unknown if ever smoked Tobacco Type: Cigarettes Hx Alcohol Use: No Hx Substance Use: No Preferred Language: Mongolian Communication Ability: Effective Facility Manager Required: No Beliefs That Will Affect Care: None Current Living Situation: Significant Other Other Information That Helps Us Care for You: No Feels Safe at Home: Yes Safety Concerns: Feels Safe At This Time Review of Systems Review of Systems: Could not be reliably obtained secondary to disorientation Physical Exam Physical Exam: GENERAL: Disoriented, slightly uncomfortable, no respiratory distress SKIN: Normal color, warm HEENT: [place] palpebral conjunctivae, no ptosis, dry buccal mucosa NECK : Supple, no tenderness CHEST : CTA, no tenderness HEART : Tachycardic, no obvious murmurs ABDOMEN: Some distention, nontender EXTREMITIES : No LE swelling/tenderness, no other conspicuous deformities noted NEUROLOGIC : Disoriented, no facial asymmetry, somewhat restless, gait and stance not assessed Results & Data Results & Data Vital Signs (Past 12 Hours) Vital Signs Pulse Pulse Resp BP BP Pulse Ox O2 Del Method 03/28/24 22:14 98 H 03/28/24 21:12 104 H 21 93 03/28/24 21:00 107 H 30 H 93 03/28/24 21:00 156/70 H 03/28/24 20:56 110 H 24 94 03/28/24 20:40 101 H 20 94 03/28/24 20:30 142/78 H 03/28/24 20:30 99 H 21 94 03/28/24 20:23 116 H 23 95 03/28/24 20:10 100 H 22 94 03/28/24 20:00 112 H 20 93 03/28/24 20:00 149/71 H 03/28/24 19:52 111 H 20 95 03/28/24 19:18 91/76 L 03/28/24 19:10 103 H 21 92 03/28/24 19:01 114 H 24 94 03/28/24 19:01 91/76 L 03/28/24 19:00 113 H 22 95 03/28/24 19:00 Room Air 03/28/24 18:51 106 H 20 93 03/28/24 18:41 98 H 21 93 03/28/24 18:30 100 H 20 93 03/28/24 18:22 103 H 22 147/65 H 91 Room Air 03/28/24 18:22 102 H 03/28/24 18:21 147/65 H 03/28/24 18:21 103 H 21 91 03/28/24 18:20 146/68 H 03/28/24 18:20 102 H 16 93 Room Air 03/28/24 17:59 112 H 18 96/64 L 95 Room Air Laboratory Results Laboratory Results WBC 5.15 K/ul (4.8-10.8) 03/28/24 Unknown RBC 5.34 M/uL (4.70-6.10) 03/28/24 Unknown Hgb 15.9 g/dl (14.0-18.0) 03/28/24 Unknown Hct 48.1 % (42.0-52.0) 03/28/24 Unknown MCV 90.1 fL (80.0-100.0) 03/28/24 Unknown MCH 29.8 pg (25.0-34.0) 03/28/24 Unknown MCHC 33.1 g/dL (32.0-36.0) 03/28/24 Unknown RDW Std Deviation 44.7 fL (36.4-46.3) 03/28/24 Unknown RDW Coeff of Frederic 13.6 % (11.5-14.5) 03/28/24 Unknown Plt Count 153 K/uL (130-400) 03/28/24 Unknown MPV 10.9 fL (9.4-12.4) 03/28/24 Unknown Immature Gran % (Auto) 0.8 % 03/28/24 Unknown Neut % (Auto) 81.3 % 03/28/24 Unknown Lymph % (Auto) 10.9 % 03/28/24 Unknown Frederick % (Auto) 6.2 % 03/28/24 Unknown Eos % (Auto) 0.2 % 03/28/24 Unknown Baso % (Auto) 0.6 % 03/28/24 Unknown Neut # (Auto) 4.19 K/uL (1.40-6.50) 03/28/24 Unknown Lymph # (Auto) 0.56 K/uL (1.20-3.40) L 03/28/24 Unknown Frederick # (Auto) 0.32 K/uL (0.11-0.59) 03/28/24 Unknown Eos # (Auto) 0.01 K/uL (0.00-0.50) 03/28/24 Unknown Baso # (Auto) 0.03 K/uL (0.00-0.20) 03/28/24 Unknown Immature Gran # (Auto) 0.04 K/uL (0.01-0.20) 03/28/24 Unknown PT 12.0 Seconds (9.0-12.0) 03/28/24 Unknown INR 1.1 (0.9-1.1) 03/28/24 Unknown Sodium 139 mmol/L (136-145) 03/28/24 18:25 Potassium 4.1 mmol/L (3.5-5.1) 03/28/24 18:25 Chloride 104 mmol/L (98-107) 03/28/24 18:25 Carbon Dioxide 26 mmol/L (21-32) 03/28/24 18:25 Anion Gap 9 (3-11) 03/28/24 18:25 BUN 20 mg/dl (6-23) 03/28/24 18:25 Creatinine 1.45 mg/dl (0.6-1.4) H 03/28/24 18:25 Est Cr Clr Drug Dosing Not Reportable 03/28/24 18:25 Est GFR ( Amer) 51.2 ml/min 03/28/24 18:25 Est GFR (Non-Af Amer) 44.2 ml/min 03/28/24 18:25 BUN/Creatinine Ratio 13.8 (10-20) 03/28/24 18:25 Glucose 161 mg/dl (70-99(Fasting)) H 03/28/24 18:25 Lactate 1.7 mmol/L (0.4-2.0) 03/28/24 20:10 Calcium 9.2 mg/dl (8.6-10.3) 03/28/24 18:25 Magnesium 1.6 mg/dl (1.7-2.4) L 03/28/24 18:25 Total Bilirubin 0.8 mg/dl (0.2-1.0) 03/28/24 18:25 AST 25 U/L (13-39) 03/28/24 18:25 ALT 20 U/L (7-52) 03/28/24 18:25 Alkaline Phosphatase 54 U/L (34-104) 03/28/24 18:25 Total Creatine Kinase 139 U/L (30-223) 03/28/24 20:33 Troponin I High Sens 47.2 pg/ml (0-20) H 03/28/24 20:33 Total Protein 7.4 gm/dl (6.0-8.3) 03/28/24 18:25 Albumin 4.2 gm/dl (3.4-5.0) 03/28/24 18:25 Globulin 3.2 gm/dl (2.5-4.0) 03/28/24 18:25 Albumin/Globulin Ratio 1.3 (0.9-2) 03/28/24 18:25 Procalcitonin 0.34 ng/ml (0-0.5) 03/28/24 Unknown TSH 0.255 uIu/ml (0.300-4.500) L 03/28/24 18: Free T4 0.75 ng/dl (0.61-1.60) 03/28/24 18:25 Adenovirus (PCR) Not Detected (NotDetected) 03/28/24 20:10 B. pertussis DNA (PCR) Not Detected (NotDetected) 03/28/24 20:10 B.parapertussis DNA PCR Not Detected (NotDetected) 03/28/24 20:10 C. pneumoniae DNA (PCR) Not Detected (NotDetected) 03/28/24 20:10 Coronavirus OC43 (PCR) Not Detected (NotDetected) 03/28/24 20:10 Coronavirus HKU1 (PCR) Not Detected (NotDetected) 03/28/24 20:10 Coronavirus 229E (PCR) Not Detected (NotDetected) 03/28/24 20:10 SARS-CoV-2 (PCR) Not Detected (NotDetected) 03/28/24 20:10 Coronavirus NL63 (PCR) Not Detected (NotDetected) 03/28/24 20:10 Human Metapneumovir PCR Not Detected (NotDetected) 03/28/24 20:10 Influenza Type A (PCR) Not Detected (NotDetected) 03/28/24 20:10 Influenza Type B (PCR) Not Detected (NotDetected) 03/28/24 20:10 M. pneumoniae (PCR) Not Detected (NotDetected) 03/28/24 20:10 Parainfluenza 1 (PCR) Not Detected (NotDetected) 03/28/24 20:10 Parainfluenza 2 (PCR) Not Detected (NotDetected) 03/28/24 20:10 Parainfluenza 3 (PCR) Not Detected (NotDetected) 03/28/24 20:10 Parainfluenza 4 (PCR) Not Detected (NotDetected) 03/28/24 20:10 RSV (PCR) Not Detected (NotDetected) 03/28/24 20:10 Entero/Rhino (PCR) DETECTED (NotDetected) A 03/28/24 20:10 SARS-CoV-2, RNA, NAAT NEGATIVE (NEGATIVE) 03/28/24 18:[address] 03/28/24 19:55 Exam(s): CT HEAD Without Contrast EXAM: CT Head Without Intravenous Contrast CLINICAL HISTORY: Reason for exam: change in mentation. TECHNIQUE: Axial computed tomography images of the head/brain without intravenous contrast. CTDI is 36.55 mGy and DLP is 624.41 mGy-cm. Automated exposure control was utilized for the study. A dose lowering technique was utilized adhering to the principles of ALARA. COMPARISON: No relevant prior studies available. FINDINGS: Limitations: Motion artifact. Brain: Age-appropriate parenchymal volume. Gaines-white matter differentiation maintained. No hemorrhage, mass-effect, or edema. Ventricles: Unremarkable. No hydrocephalus. Bones/joints: Unremarkable. No acute fracture. Soft tissues: Unremarkable. Sinuses: Mucosal thickening and retained secretions in the right maxillary sinus, which is hypoplastic. Paranasal sinuses otherwise clear. Mastoid air cells: Chronic partial opacification of the posterior left mastoid air cells. Right mastoid air cells are clear. Orbits: Bilateral lens replacements. IMPRESSION: Limited by motion. No acute intracranial findings as visualized. Electronically signed by: Janell Warner M.D. 03/28/24 21:54 PM Diagnostic Findings Chest x-ray as per my interpretation atelectasis EKG as per my interpretation : Rate 110, sinus tachycardia, normal axis, no ischemia, PVCs
[2024-03-28] MEDS: METOPROLOL TARTRATE 25 MG TAB PO STA ×2 (23:40→23:43)
[2024-03-29] MEDS: ACETAMINOPHEN 325 MG TAB PO PRN ×2 (00:15→06:03)
[2024-03-29 01:16] LABS: Appearance Urine Clear (Clear); Bacteria Urine Automated None Seen (None Seen); Bilirubin Urine Negative (Negative); Blood Urine Negative (Negative); Color Urine Dark Yellow; Epithelial Cell Urine Auto 0-2 /hpf (0-2); Glucose Urine UA Negative (Negative); Ketones Urine Trace (Negative); Leukocyte Esterase Urine Negative (Negative); Nitrite Urine Negative (Negative); Protein Urine 1+ (Negative); Specific Gravity Urine 1.028 (1.000-1.030); Urobilinogen Urine Negative (Negative); WBC Urine Automated 0-5 /hpf (0-5); pH Urine 5.5 (4.5-7.5)
[2024-03-29 02:35] LABS: BUN Creatinine Ratio 17.2 (10-20); Calcium 8.7 mg/dl (8.6-10.3); Creatinine Clr Calc Pharmacy 55.8 ml/min; Est GFR (African American) 56.4 ml/min; Est GFR (Non-African American) 48.6 ml/min; Magnesium 1.8 mg/dl (1.7-2.4); Potassium 3.7 mmol/L (3.5-5.1)
[2024-03-29 02:46] LABS: Hemoglobin 13.9 g/dl (14.0-18.0); Mean Corpuscular Hgb Conc 33.9 g/dL (32.0-36.0); Mean Corpuscular Volume 88.6 fL (80.0-100.0); Mean Platelet Volume 10.5 fL (9.4-12.4); Platelet Count 115 K/uL (130-400); RDW Coefficient of Variation 13.7 % (11.5-14.5); RDW Standard Deviation 43.9 fL (36.4-46.3); Red Blood Count 4.63 M/uL (4.70-6.10); White Blood Count 4.69 K/ul (4.8-10.8)
[2024-03-29 02:49] LABS: Troponin I High Sensitivity 103.7 pg/ml (0-20)
[2024-03-29 03:25] LABS: Basophils # (auto) 0.02 K/uL (0.00-0.20); Basophils % (auto) 0.4 %; Eosinophils # (auto) 0.01 K/uL (0.00-0.50); Eosinophils % (auto) 0.2 %; Immature Granulocytes # (auto) 0.03 K/uL (0.01-0.20); Immature Granulocytes % (auto) 0.6 %; Lymphocytes % (auto) 4.3 %; Monocytes # (auto) 0.15 K/uL (0.11-0.59); Monocytes % (auto) 3.2 %; Neutrophils # (auto) 4.28 K/uL (1.40-6.50); Neutrophils % (auto) 91.3 %; Polychromasia 1+
--- NOTE | 2024-03-29 03:25 | Communication Note ---
Date of Service: March 29, 2024 Notified by lab of abnormal CBC differential findings CBCD suspicious for anaplasmosis as per rd lab technician. AP Anaplasmosis smear Doxycycline for now
[2024-03-29] MEDS: ALBUMIN 25% 25 GM/100 ML VIAL IV ONE ×2 (03:28→23:56)
[2024-03-29] MEDS: DOXYCYCLINE HYCLATE 100 MG in DEXTROSE 5% MINI-B 100 ML IV STA (04:09)
[2024-03-29] MEDS ORDERED: HEPARIN SOD 5,000 UNIT/0.5 ML VIAL SQ SCH (06:00)
[2024-03-29 07:17] LABS: Estimated Average Glucose 123 mg/dl; Hemoglobin A1C 5.9 % (4.5-5.6)
[2024-03-29] MEDS: METOPROLOL TARTRATE 25 MG TAB PO SCH (08:24)
--- NOTE | 2024-03-29 08:40 | XRay Report ---
XR chest 1V portable HISTORY: 83 years-old Male weakness COMPARISON: 10/25/2017 TECHNIQUE: AP view of the chest FINDINGS: Cardiac silhouette is enlarged. Pulmonary vascular congestion. No pneumothorax or large pleural effus ion. Mild subsegmental bibasilar densities. Bones appear grossly intact. IMPRESSION: 1. Cardiomegaly with pulmonary vascular congestion. 2. Mild bibasilar densities favor atelectasis. ACT 112: Negative or not required by law. The above report was generated using voice recognition software. It may contain grammatical, syntax o r spelling errors. Electronically signed by: Michael Cavanaugh M.D. 03/29/2024 8:38 AM
--- NOTE | 2024-03-29 13:16 | Hospitalist Progress Note ---
Date of Service March 29, 2024 Assessment & Plan (1) Encephalopathy: Plan: 83-year-old male with PMH of HLD, prediabetes, anxiety, tremors, past tobacco abuse presented to the ED 03/28 with complaint of chills, not feeling well for 1 day. Patient denied chest pain or cough or shortness of breath symptoms at presentation. Patient denies abdominal pain, nausea, vomiting, diarrhea. 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 He is being managed for the following: Tickborne illness, anaplasmosis Sepsis POA: Temperature, pulse rate, respiratory rate elevated at presentation ISO anaplasmosis. Lactate and procalcitonin WNL. Sepsis likely secondary to above. Rhinovirus URTI Metabolic encephalopathy Patient coming in with not feeling well, chills. See above. At admission, patient's septic likely secondary to tickborne illness/anaplasmosis Patient started on doxycycline 03/29, continue Patient's temperature getting better, vitals more stable. Patient is oriented x 4, reports improving mentation and reports feeling better. Labs in AM. PT/OT when able. Mild dehydration: Creatinine elevated at 1.45 at presentation, baseline around 1.25. Does not qualify definition of DESMOND. Status post fluid/crystalloid resuscitation. Creatinine improving. Labs in AM. Encourage p.o. intake. Erratic blood pressure: Likely secondary to acute illness, will continue to monitor. Currently stable. Low-dose beta-kanwal initiated, continue to monitor. Likely demand ischemia: Troponin elevated and mildly up trended at presentation, patient with no chest pain. Follow-up echo. Continue telemetry monitoring. Other chronic medical conditions: HLD, not on maintenance medication. Prediabetes: A1c 5.9 this admission. Continue to monitor as an outpatient Past tobacco abuse DVT prophylaxis. Heparin subcu Full code Text document was generated using [employer] voice recognition software. It may contain grammatical or spelling errors. Kindly contact undersigned for clarification of any documentation item in question. Admission and Anticipated Discharge Date Admission Date: March 28, 2024 Subjective Patient was seen and examined at bedside. Patient was lying in bed, on room air, appears tired/drowsy but oriented x 4. Patient reports feeling better, afebrile in the last several hours, denies pain, reports eating okay and moving bowels okay. Patient denies any headache or dizziness or chest pain. Physical Exam Physical Exam: GENERAL: oriented x3. NAD, on RA. appears tired/sleepy. HEENT: No pallor, no icterus. Pupils equal, round and reactive to light. Oral mucosa moist. NECK: No JVD, no neck masses. HEART: S1 and S2 heard. Regular rate and rhythm. No murmur, no gallop. RESPIRATORY SYSTEM: Normal AP diameter. No accessory muscle use. No wheezing, no crackles. ABDOMEN: Soft, bowel sounds present, nontender, no distention. CENTRAL NERVOUS SYSTEM: No facial droop. Speech is clear. Obeys simple commands. Moves extremities. EXTREMITIES: No edema, no erythema seen. 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 Results & Data Results & Data Vital Signs (Past 12 Hours) Vital Signs Temp Pulse Pulse Resp BP BP Pulse Ox 03/29/24 10:00 67 24 125/67 92 03/29/24 08:22 37.3 C 78 25 H 155/73 H 93 03/29/24 08:00 81 25 H 135/64 91 03/29/24 07:32 81 03/29/24 05:58 37.5 C 81 24 150/71 H 93 03/29/24 02:20 38.1 C H 03/29/24 01:49 72 22 127/60 93 03/29/24 01:47 03/29/24 01:27 O2 Del Method 03/29/24 10:00 Room Air 03/29/24 08:22 Room Air 03/29/24 08:00 Room Air 03/29/24 07:32 03/29/24 05:58 Room Air 03/29/24 02:20 03/29/24 01:49 03/29/24 01:47 Room Air 03/29/24 01:27 Room Air
[2024-03-29] MEDS: PROMETHAZINE HCL 6.25 MG in SODIUM CHLORIDE 0.9% 50 ML IV PRN (21:27)
[2024-03-29] MEDS: DOXYCYCLINE HYCLATE 100 MG CAP PO SCH (21:27)
[2024-03-29 22:07] VITALS: RESP 18
[2024-03-30 07:58] LABS: Hematocrit (blood only) 39.9 % (42.0-52.0); Hemoglobin 13.6 g/dl (14.0-18.0); Mean Corpuscular Hemoglobin 30.4 pg (25.0-34.0); Mean Corpuscular Hgb Conc 34.1 g/dL (32.0-36.0); Mean Corpuscular Volume 89.3 fL (80.0-100.0); Mean Platelet Volume 10.6 fL (9.4-12.4); Platelet Count 69 K/uL (130-400); RDW Coefficient of Variation 13.8 % (11.5-14.5); RDW Standard Deviation 45.3 fL (36.4-46.3); Red Blood Count 4.47 M/uL (4.70-6.10); White Blood Count 2.71 K/ul (4.8-10.8)
[2024-03-30 08:11] LABS: BUN Creatinine Ratio 26.1 (10-20); Calcium 8.6 mg/dl (8.6-10.3); Creatinine Clr Calc Pharmacy 59.8 ml/min; Est GFR (African American) 67.8 ml/min; Est GFR (Non-African American) 58.5 ml/min; Phosphorus 2.7 mg/dl (2.5-4.9); Potassium 3.8 mmol/L (3.5-5.1)
--- NOTE | 2024-03-30 16:15 | Hospitalist Progress Note ---
Date of Service March 30, 2024 Assessment & Plan (1) Encephalopathy: Plan: 83-year-old male with PMH of HLD, prediabetes, anxiety, tremors, past tobacco abuse presented to the ED 03/28 with complaint of chills, not feeling well for 1 day. Patient denied chest pain or cough or shortness of breath symptoms at presentation. Patient denies abdominal pain, nausea, vomiting, diarrhea. 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 He is being managed for the following: Tickborne illness, anaplasmosis Sepsis POA: Temperature, pulse rate, respiratory rate elevated at presentation ISO anaplasmosis. Lactate and procalcitonin WNL. Sepsis likely secondary to above. Rhinovirus URTI Metabolic encephalopathy Patient coming in with not feeling well, chills. See above. At admission, patient's septic likely secondary to tickborne illness/anaplasmosis ECHO this admission reviewed. Patient started on doxycycline 03/29, continue Patient's temperature getting better, vitals more stable. Intermittent febrile episodes noted. Patient is oriented x 4, mentation improved. Patient feels better. Labs in AM. PT/OT when able. Mild dehydration: Creatinine elevated at 1.45 at presentation, baseline around 1.25. Does not qualify definition of DESMOND. Status post fluid/crystalloid resuscitation. Creatinine improved. Erratic blood pressure: Likely secondary to acute illness, will continue to monitor. Currently stable. Low-dose beta-kanwal initiated, continue to monitor. Likely demand ischemia: Troponin elevated and mildly up trended at presentation, patient with no chest pain. Follow-up echo. Continue telemetry monitoring. Other chronic medical conditions: HLD, not on maintenance medication. Prediabetes: A1c 5.9 this admission. Continue to monitor as an outpatient Past tobacco abuse DVT prophylaxis. Heparin subcu Full code Text document was generated using [employer] voice recognition software. It may contain grammatical or spelling errors. Kindly contact undersigned for clarification of any documentation item in ques tion. Admission and Anticipated Discharge Date Admission Date: March 28, 2024 Subjective Patient was seen and examined at bedside. Patient was lying in bed, on room air, appears alert and improved. Patient reports feeling better, was febrile overnight but temperature overall getting better, denies pain, reports eating okay. Reports appetite improving. Patient denies any headache or dizziness or chest pain. Physical Exam Physical Exam: GENERAL: oriented x3. NAD, on RA. Alert. HEENT: No pallor, no icterus. Pupils equal, round and reactive to light. Oral mucosa moist. NECK: No JVD, no neck masses. HEART: S1 and S2 heard. Regular rate and rhythm. No murmur, no gallop. RESPIRATORY SYSTEM: Normal AP diameter. No accessory muscle use. No wheezing, no crackles. ABDOMEN: Soft, bowel sounds present, nontender, no distention. CENTRAL NERVOUS SYSTEM: No facial droop. Speech is clear. Obeys simple commands. Moves extremities. EXTREMITIES: No edema, no erythema seen. 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 Results & Data Results & Data Vital Signs (Past 12 Hours) Vital Signs Temp Pulse Pulse Resp BP Pulse Ox O2 Del Method 03/30/24 16:03 36.9 C 60 18 112/67 94 Room Air 03/30/24 11:20 36.9 C 56 L 18 110/62 94 Room Air 03/30/24 10:00 Room Air 03/30/24 08:20 53 L 03/30/24 08:04 36.7 C 58 L 18 109/66 93 Room Air
[2024-03-30] MEDS: HEPARIN SOD 5,000 UNIT/0.5 ML VIAL SQ SCH (21:35)
--- OUTSIDE RECORDS SUMMARY | 2024-03-31 04:35 | External Medical Summary | Summary of Care ---
Author Name Unknown Organization [facility] Address [address] [place] [address] Phone [phone] Care Team Providers Care Transitional Care Manager Name Role Phone Kishor Mloina MD Primary Care Provider [phone] Reason for Visit * Reason Comments Adult Annual Wellness Visit, Subsequent Visit Encounter Details Date Type Department Care Team (Late st Contact Info) Description 02/06/2024 8:00 AM EDT Nurse Only Ancillary Department, [facility] [address] [place] [address] [facility], Nurse Annual Wellness [address] [place] [address] Adult Annual Wellness Visit, Subsequent Visit Allergies Active Allergy Reactions Criticality Noted Date Comments Salicylates 12/30/2008 Upset stomache Aspirin Abdominal pain 12/07/2007 Other reaction(s): Free Text upset stomach Yellow Fever Vaccine 12/30/2008 Passed out documented as of this encounter (statuses as of 02/06/2024) Medications No known medicationsdocumented as of this encounter (statuses as of 02/06/2024) Active Problems Problem Noted Date Diagnosed Date Chronic kidney disease, stage 3a 09/06/2021 Overview: Per CKD protocol MARGOT (generalized anxiety disorder) 03/15/2018 Essential tremor 09/14/2016 Dyslipidemia, goal LDL below 130 03/06/2013 BPH with obstruction/lower urinary tract symptom s 03/06/2013 documented as of this encounter (statuses as of 02/06/2024) Resolved Problems Problem Noted Date Diagnosed Date Resolved Date Prediabetes 01/09/2018 03/15/2018 Overview: Per Prediabetes protocol #1 Essential and other specified forms of tremor 03/12/20 15 09/14/2016 Anxiety disorder 01/09/2014 03/15/2018 documented as of this encounter (statuses as of 02/06/2024) Immunizations Name Administration Dates Next Due COVID-19 mRNA, LNP-s, No Pre serve, 2-Dose Series (Moderna) 01/04/2021,12/07/2020 COVID-19, mRNA, LNP-s, PF, B ooster, 100mcg/0.5mg (Moderna) 11/15/2021 Covid-19, Mrna, Lnp-s, Pf, B ivalent, 50 Mcg, IM, 12 yrs and above (Moderna) 09/09/2022 Pneumococcal Conjugate Vacc, 13 Valent (Prevnar) 09/14/2016 Pneumococcal Polysaccharide PPV23 (Pneumovax) ,12/30/2008 Seasonal Influenza, PF, 6 M & above, IM , (FluLaval or Fluzone) 08/31/2022,08/14/2020 Seasonal Influenza, Quadrivalent Hd (Fluzone Hd) 08/17/2021 TDAP (age 10 and older)(Boostrix) 03/10/2014 documented as of this encounter Social History Tobacco Use Types Packs/Day Years Used Date Smoking Tobacco: Former Smokeless Tobacco: Current Chew Comments:chews currently, qu it cigarettes 04/1982 Alcohol Use Standard Drinks/Week Comments Yes 0 (1 standard drink = 0.6 oz pur e alcohol) RARELY PHQ-2 Answer Date Recorded PHQ Adult Total Score 0 01/27/2023 Hunger Vital Sign Answer Date Recorded Within the past 12 months, y ou worried that your food would run out before you got the money to buy more. Never true 02/05/20 24 Within the past 12 months, t he food you bought just didn't last and you didn't have money to get more. Never true 02/05/2024 Sex and Gender Information Value Date Recorded Sex Assigned at Not on file Gender Identity Male 01/27/2023 8:21 AM EST Sexual Orientation Straight 08/17/2021 8: 21 AM EDT Job Start Date Occupation Industry Not on file Not on file Not on file documented as of this encounter Last Filed Vital Signs Vital Sign Reading Time Taken Comments Blood Pressure 124/68 02/06/2024 8:22 AM EDT Pulse 78 02/06/2024 8:22 AM EDT Temperature 36.6 C (97.8 F) 02/06/2024 8:22 AM E DT Respiratory Rate - - Oxygen Saturation 95% 02/06/2024 8:22 AM EDT Inhaled Oxygen Concentration - - Weight 106 kg (233 lb 9.6 oz) 02/06/2024 8:22 AM EDT Height 191.8 cm (6' 3.5") 02/06/2024 8:22 AM EDT Body Mass Index 28.81 02/06/2024 8:22 AM EDT documented in this encounter Patient Instructions * Patient Instructions* Lisa Turner RN - 02/06/2024 8:46 AM EDT Patient Instructions - Fall Prevention (This education is for all patients over 65 regardless of symptoms) Remember to take your current medications as prescribed. In order to prevent falls, you are encouraged to: Exercise Utilize assistive/adaptive devices Avoid multifocal lenses when walking Avoid hazards in home Maintain a regular toileting schedule Any questions please contact our office. Preventing Falls in the Home (This education is for all patients over 65 regardless of symptoms) As you get older, falls are more likely. Thats because your reaction time slows. Your muscles and joints may also get stiffer, making them less flexible. Illness, medications, and vision changes can also affect your balance. A fall could leave you unable to live on your own. To make your home safer, follow these tips: Floors Put nonskid pads under area rugs Remove throw rugs Replace worn floor coverings Tack carpets firmly to each step on carpeted stairs. Put nonskid strips on the edges of uncarpeted stairs Keep floors and stairs free of clutter and cords Arrange furniture so there are clear pathways Clean up any spills right away Bathrooms Install grab bars in the tub or shower Apply nonskid strips or put a nonskid rubber mat in the tub or shower Sit on a bath chair to bathe Use bathmats with nonskid backing Lighting Keep a flashlight in each room Put a nightlight along the pathway between the bedroom and the bathroom [employer] Patient Education Copyright 2008 - 2010 [employer] except where otherwise noted Preventing Falls: Exercises to Improve Balance, Flexibility, Strength, and Staying Power (This education is for all patients over 65 regardless of symptoms) Certain types of exercises may help make you less likely to fall. Try the ones below. Or do other exercises that your healthcare provider suggests. Depending on your health, you may need to start slowly. Dont let that stop you. Even small amounts of exercise can help you. Be sure to talk to yourhealthcare provider before starting any exercise program. Improve Balance Many types of exercise can help improve balance. Parag chi and yoga are good examples. Heres another one to try. You can do it anytime and almost anywhere. Stand next to a counter or solid support. Push yourself up onto your tiptoes. Hold for 5 seconds. If you start to lose your balance, hold on to the counter. Rest and repeat 5 times. Work up to holding for 20 to 30 seconds, if you can. Increase Flexibility Being more flexible makes it easier for you to move around safely. Try exercises like the seated hamstring stretch. Sit in a chair and put one foot on a stool. Straighten your leg and reach with both hands down either side of your leg. Reach as far down your leg as you can. Hold for about 20 seconds. Go back to the starting position. Then repeat 5 times. Switch legs. Build Strength Resistance exercises help build strength. You can do them without equipment. Or you can use weights, elastic bands, or special machines. One such exercise is called the biceps curl. You can hold a 1 pound weight or even a can of soup. Do this exercise at least 3 times a week. Strive for everyday. Sit up straight in a chair. Keep your elbow close to your body and your wrist straight. Bend your arm, moving your hand up to your shoulder. Then slowly lower your arm. Repeat 5 times. Switch to the other arm. Build Your Staying Power Aerobic exercises make your heart and lungs stronger so you can keep moving longer. Walking and swimming are two of the best types of exercises you can do. Using a stationary bike is great, too. Find an aerobic exercise that you enjoy. Start slowly and build up. Even 5 minutes is helpful. Aimfor a goal of 30 minutes, at least 3 times a week. You dont have to do 30 minutes in one session. Break it up and walk a little throughout the day. More Helpful Tips Start easy. Slowly work up to doing more. Talk with your healthcare provider about the best exercises for you. Call senior centers or health clubs about exercise programs. If needed, have a family member watch you walk every so often to check your stability. Exercise with a friend. Choose an activity you both enjoy. Try exercises that you can do anytime, anywhere. Here are two examples. Have someone with you when you first try these: Practice walking by placing one foot right in front of the other. Stand up and sit down 10 times. Repeat this throughout the day. [employer] Patient Education Copyright 2008 - 2010 [employer] except where otherwise noted. Preventing Falls: Moving Safely Using a Cane or Walker (This education is for all patients over 65 regardless of symptoms) Keep the cane away from your feet so you dont trip. A walking aid, such as a cane or walker, can help you stay more independent and avoid falls. Remember to keep your walking aid within easy reach when youre in a chair or in bed. And learn how to use it safely so you dont injure yourself. Using a Cane If you have a stronger side, hold the cane on that side. Get your balance. Move the cane and your weaker leg forward. Support your weight on both the cane and your weaker side. Step with your stronger leg. Start again from step 1. If youre using a folding walker, be sure you know how to lock it open. Check that its locked open before each use. Using a Walker Roll the walker (or lift it, if youre using one without wheels) forward about 12 inches. Step forward with your weaker leg first. Use the walker to help keep your balance. Bring your other foot forward to the center of the walker. Start again from step 1. Helpful Tips Check with your healthcare provider about the right walking aid to use. Ask about a walker with a seat attached. Check the tips of your cane or walker to make sure they have nonskid covers. Move slowly from room to room. Dont rowley. Sit down to get dressed. Use a mian pack or backpack to keep your hands free. Get help for jobs that mean climbing, even on a stepstool. [employer] Patient Education Copyright 2008 - 2010 [employer] except where otherwise noted. Treating Urinary Incontinence in Men (This education is for all patients over 65 regardless of symptoms) You can't always control the release of urine. You may leak urine. Or you may not be able to hold your urine until you can get to a bathroom. This is called urinary incontinence. The problem can be managed. Talk to your doctor about your treatment options. Taking Medications Prescription medications may help you. They may: Help the sphincter to work better. (This is the muscle that closes to keep urine from leaking out of the bladder.) Help stop the bladder from karmen too often to push urine out. Help the bladder muscles contract with more force. Help relax the sphincter muscle and allow urine to flow more freely. Making Changes to Your Routine Certain changes in your daily routine may help. These include: Avoiding caffeine and alcohol. Using timed voiding. This is following a schedule for drinking fluids and urinating. Doing Kegel exercises daily. These exercises involve tightening the muscles in your sphincter and around your bladder to help strengthen them. Your doctor can explain how to do them. Using a Catheter A catheter is a narrow tube that is inserted through the urethra into the bladder. It drains urine.A condom catheter covers the penis. It channels urine into a collection bag. It is worn most of thetime. Intermittent catheterization means inserting a catheter to drain the bladder, then removing it. This is done on a regular schedule. Having Surgery If other options don't work, surgery may be recommended. If surgery is an option, your healthcare provider can discuss it with you and explain its risks and benefits. Healing After Prostate Surgery Surgery on the prostate gland can cause incontinence. Most often, the incontinence is only for a short time. It clears up when healing is complete. Very rarely, prostate surgery can result in permanent incontinence. Hi Mr. Shaffer, As your primary care physician, I know that regular visits with my patients who have several chronic conditions can go a long way in helping you stay healthy. Many times, the clinic team and I are in touch with you and/or other care team members between office visits to adjust medications, discuss any changes in your health, and review our care plan to make sure it is still meeting your needs. I am dedicated to helping you take a more active role in your overall care. It is important that there are resources available to you, so I created a personalized plan of care with a Health Calendar for you, which is included on the next page of this letter. Below is a list that summarizes your electronic health record: Health Maintenance Due: Health Maintenance Due Topic Date Due Zoster Vaccines (1 of 2) Never done Influenza Vaccine (FLU shot) (1) 07/28/2023 COVID-19 Vaccine (2022- season) 2023 Depression Screening 01/28/2024 Current Medication List: (as of Visit date not found (in office), Visit date not found (telemedicine) ) No current outpatient medications on file. No current facility-administered medications for this visit. Current List of Allergies: (as of Visit date not found (in office), Visit date not found (telemedicine) ) Review of patient's allergies indicates: Allergen Reactions Asa [Salicylates] Upset stomache Aspirin Abdominal pain Other reaction(s): Free Text upset stomach Yellow Fever Vaccine Passed out Most Recent Lab Results: Results for orders placed or performed in visit on 08/21/23 PHOSPHORUS Result Value Ref Range Phosphorus 3.0 2.5 - 4.8 mg/dL HGB Result Value Ref Range HGB 14.5 14.0 - 16.8 g/dL COMPREHENSIVE METABOLIC PANEL Result Value Ref Range BUN 24 (H) 6 - 20 mg/dL Creatinine 1.1 0.6 - 1.2 mg/dL Estimated Glomerular Filtration Rate 68 >=60 mL/min Sodium 141 135 - 146 mmol/L Potassium 4.5 3.5 - 5.1 mmol/L Chloride 106 98 - 107 mmol/L CO2 26 22 - 32 mmol/L Anion Gap 9 7 - 15 mmol/L Glucose 163 (H) 70 - 120 mg/dL Albumin 3.8 3.8 - 5.0 g/dL AST 10 10 - 50 U/L Alkaline Phosphatase 76 35 - 130 U/L Bilirubin, Total 0.4 <=1.2 mg/dL Calcium 9.2 8.4 - 10.2 mg/dL Protein 6.4 6.0 - 8.3 g/dL ALT 17 10 - 50 U/L ALBUMIN / CREATININE RATIO, URINE Result Value Ref Range Albumin, Random Urine <1.20 mg/dL Creatinine, Random Urine 171 mg/dL Albumin / Creatinine Ratio, Urine <7 <30 mg/g Creat Sincerely, Kishor Molina MD 02/06/2024 [facility] Calendar (as of Visit date not found (in office), Visit date not found (telemedicine) ) Care needs Care needs Last completed Due next Zoster (Shingles) Vaccine (1 of 2) --- Never done Flu vaccine (recommended) (1) 08/31/2022 07/28/2023 COVID-19 Vaccine ( - 2022- season) 2022 07/28/2023 Kidney Function Test 08/21/2023 02/19/2024 Diphtheria, tetanus & pertussis vaccines (2 - Td or Tdap) 03/10/2014 03/10/2024 Urine albumin/creatinine test 08/21/2023 08/21/2024 As you look over the recommended services, be sure to check with your insurance company to determine what's covered. [employer] is a great tool that helps you review your medical record online, including test results, doctor notes and your health summary. You can also schedule appointments with me and other members of your care team, request prescription refills and ask for advice related to your medical conditions at [email or web address]. documented in this encounter Progress Notes * Lisa Turner, RN - 02/06/2024 8:27 AM EDT AD8 Dementia Screening Interview Person answering questions: patient Remember, "Yes, a change" indicates that there has been a change in the last several years caused by cognitive (thinking and memory) problems 1. Problems with judgement (eg: problems making decisions, bad financial decisions, problems with thinking). No (0) 2. Less interest in hobbies/activities. No (0) 3. Repeats the same things over and over (questions, stories, or statements). No (0) 4. Trouble learning how to use a tool, appliance, or gadget (eg: VCR, computer, microwave, remote control). No (0) 5. Forgets correct month or year. No (0) 6. Trouble handling complicated financial affairs (eg: balancing checkbook, income taxes, paying bills). No (0) 7. Trouble remembering appointments. No (0) 8. Daily problems with thinking and/or memory. No (0) TOTAL AD8: 0 - AD8 Dementia Screening Score The final score is a sum of the number items marked "Yes, A Change". 0 - 1: Normal cognition; 2 or greater: Cognitive impairments is likely to be present - further testing required Adult Annual Wellness Visit: Jere Shaffer Jr. is a 83 year old male who presents for an Adult Annual Wellness Visit. Depression Screening: Did the patient complete the screening questionnaire for Depression? Yes Is the patient's total score for Depression 15 or greater? No, no further intervention needed, unless requested by patient. Did the patient answer positively to the suicide question? No, no further intervention needed, unless requested by patient. In general, compared to other people your age, what would you say that your health is? Excellent Ht Readings from Last 1 Encounters: 02/06/24 1.918 m (6' 3.5") Wt Readings from Last 1 Encounters: 02/06/24 106 kg (233 lb 9.6 oz) Body Mass Index: BMI Less than 30 Body mass index is 28.81 kg/m. BP Readings from Last 1 Encounters: 02/06/24 124/68 Medical/Surgical/Family History Reviewed: Yes Past Medical History: Diagnosis Date Essential and other specified forms of tremor 04/2000 - essential Phobia Variety of phobias and anxiety d/o Past Surgical History: Procedure Laterality Date COLONOSCOPY W/ LESION REMOVAL, SNARE 01/21/09 await path, repeat in 5-10 years Family History Problem Relation Age of Onset Diabetes Mother lived to be 87 Cancer Father Prostate - at 87 Has patient ever had cancer? No Social History Tobacco Use Smoking status: Former Smokeless tobacco: Current Types: Chew Tobacco comments: chews currently, quit cigarettes 04/1982 Substance Use Topics Alcohol use: Yes Comment: RARELY Vaping/E-Cigarette Use Vaping/E-Cigarette Use Never User Vaping/E-Cigarette Substances Vaping/E-Cigarette Devices Tobacco/Alcohol screening completed today? Yes Hospital Care: Admissions (within the last year): Not Applicable ER within 30 days: No Does the patient have an Advance Directives/Living Will? No. Does the patient want information? Yes. Information given to patient Advance Care Planning is important for all adults. Discussed the process of thinking and talking about future healthcare decisions. ACP form and pamphlet given to patient to take home to discuss withfamily. Once form is completed, patient to get a copy to us to scan into their chart. Last Physical Exam: Last physical exam: 07/2023 Does patient see primary provider regularly? Yes Does patient see other providers? Yes, Specialist Patient Care Team updated? Yes Review of patient's allergies indicates: Allergen Reactions Asa [Salicylates] Upset stomache Aspirin Abdominal pain Other reaction(s): Free Text upset stomach Yellow Fever Vaccine Passed out Immunization History Administered Date(s) Administered COVID-19 mRNA, LNP-s, No Preserve, 2-Dose Series (Moderna) 12/07/2020, 01/04/2021 COVID-19, mRNA, LNP-s, PF, Booster, 100mcg/0.5mg (Moderna) 11/15/2021 Covid-19, Mrna, Lnp-s, Pf, Bivalent, 50 Mcg, IM, 12 yrs and above (Moderna) 09/09/2022 Pneumococcal Conjugate Vacc, 13 Valent (Prevnar) 09/14/2016 Pneumococcal Polysaccharide PPV23 (Pneumovax) 12/30/2008, 09/27/2014 Seasonal Influenza, PF, 6 M & above, IM , (FluLaval or Fluzone) 08/14/2020, 08/31/2022 Seasonal Influenza, Quadrivalent Hd (Fluzone Hd) 08/17/2021 TDAP (age 10 and older)(Boostrix) 03/10/2014 No current outpatient medications on file. No current facility-administered medications for this visit. Patient Active Problem List Diagnosis Code Dyslipidemia, goal LDL below 130 E78.5 BPH with obstruction/lower urinary tract symptoms N40.1, N13.8 Essential tremor G25.0 MARGOT (generalized anxiety disorder) F41.1 Chronic kidney disease, stage 3a (HCC) N18.31 Medication Compliance: Patient is able to obtain all of his medications? NA, not on any meds Patient takes medications as prescribed? NA Patient manages own medications: NA Patient uses a pill box? No Dental Exam: No, Dentures Eye Screening: Yes: Every year Are you having trouble with hearing? No Do you use an assistive device to help your hearing? No Exercise Screening: does not exercise regularly Nutrition Assessment: Eats a balanced diet and Eats three meals a day Pain Screening: Are you having any pain? No Sleep Screening Tool 'STOP': Do you snore? Yes Do you feel fatigued during the day? No Do you wake up feeling like you haven't slept? No Have you been told you stop breathing at night? No Do you gasp for air or choke while sleeping? No Have you been told you have Sleep Apnea? No Do you have high blood pressure or are on medication(s) to control high blood pressure? No SCORE: If you check YES to two or more questions, make a referral for Obstructive Sleep Apnea Patient and Caregiver Support System: Patient lives alone, girlfriend lives with him in the winter Means of Transportation: Drives. Not a concern. Patient lives in One Story - with basement stairs: 13 steps with hand railing Community Resources: Not Applicable Functional Status and ADL Skills: Has patient ever had an amputation? No Functional Assessment: 90- Able to carry on normal activity, minor symptoms of disease Ambulation: Patient ambulates without assistive device. Independent Dressing: Gets clothes and dresses without any assistance: Independent Able to move freely in chair or bed including turning over: Independent Repositioning (bed or chair): Not applicable Transfers: Independent Toileting: Goes to bathroom, uses toilet, arranges clothes and returns without any assistance: Independent Toileting: continent of bladder and continent of bowel Feeding: Self Bathing: Self; tub, shower chair, grab bars, mat to step out onto Requires none assistance with ADLs. Instrumental ADL's: Shopping: Independent Housekeeping: Moderate Assistance from girlfriend Handling Finances: Independent DME Vendor Name: Not Applicable Fall Risk Assessment: Can the patient demonstrate that he can stand from a sitting position? Yes Has the patient had a fall within the last 6 months? No Does the patient have a problem with his gait or balance? No Does the patient take 4 or more prescription medicines? No Does the patient use sedatives or narcotics? No Fall Risk Factors Present: Older than age 70 Fsa-Om-fzm-Go Test: Time began at 0800. Patient stood from sitting position and walked approximately 10 feet, returned and sat down. Total time for xgr-ve-umb-go test was 14 seconds. Uxr-Bg-fdr-Go Test completed? Yes Gender Specific Preventative Plan: Health Maintenance Topic Date Due Zoster Vaccines (1 of 2) Never done Influenza Vaccine (FLU shot) (1) 07/28/2023 COVID-19 Vaccine (5 - 2022-24 season) 2023 Depression Screening 01/28/2024 GFR 02/19/2024 DTaP,Tdap,and Td Vaccines (2 - Td or Tdap) 03/10/2024 Albumin/Creatinine Ratio 08/21/2024 CKD HGB USE SMARTSET [id number] 08/21/2024 CKD PHOS USE SMARTSET [id number] 08/21/2024 Pneumococcal Vaccine: 65+ Years Completed Hepatitis B Aged Out MENINGOCOCCAL (MENACTRA/MENVEO) Aged Out GARDASIL-HPV IMMUNIZATION SERIES Aged Out Follow Up/ Referrals/Handouts: Smoker - Provided Quit Line.Patient chews tobacco. Depression screening - Completed Functional assessment - Completed Falls Risk screening - Completed, handout given Exercise screening - Encouraged regular exercise as able Nutrition assessment -. Education Provided and Handouts Provided Pain screening - No concerns Incontinence screening - No concerns Routine general medical examination at a health care facility (Primary) Risk and functional assessment Dyslipidemia, goal LDL below 130 Component Latest Ref Rng 08/18/2022 Non-HDL Cholesterol <=159 mg/dL 145 LDL Cholesterol <=129 mg/dL 116 Continue to monitor and follow with PCP Chronic kidney disease, stage 3a (HCC) Continue to monitor and follow with PCP MARGOT (generalized anxiety disorder) Continue to monitor and follow with PCP Patient has been verbally educated on the need or importance of Immunizations: Influenza, Shingles Patient declines both Influenza and Shingles vaccines Discussed importance of Covid Vaccine: pt has received the vaccine Yes, Patient has received Covid vaccine Would patient like to schedule next AWV visit? Yes Lisa Turner RN documented in this encounter Miscellaneous Notes * ACP (Advance Care Planning) - Lisa Turner RN - 02/06/2024 2:49 PM EDT Images from the original note were not included. Advance Care Planning Patient-centered Communication 02/06/2024 Location: Clinic Individual(s) present for conversation: Patient Decisions Additional Comments Advance Care Planning is important to all adults. Discussed the process of thinking and talking about future healthcare decisions. ACP form and pamphlet given to patient to take home and discuss withfamily. Once form is completed, patient to get a copy to us to scan into their chart. Discerning What Matters Most to the Patient: Synopsis SmartLink Most Recent Value Past ~10 years 02/06/2024 14:38 Discerning What Matters Most to the Patient In their own words, patient's UNDERSTANDING of their illness is: No big concerns now, takes no prescription medicaitons curently 02/06/2024 No big concerns now, takes no prescription medicaitons curently The patient's HOPES are: Other (define below) 02/06/2024 Other (define below) Other, patient defines as: [place] states most important thing is to be able to be at home. Does not want to be in the hospital. 02/06/2024 Pat[place] states most important thing is to be able to be at home. Does not want to be in the hospital. The patient defines LIVING WELL as: A good day would involve working on cars. He has restored 3 cars already. Plans to work on a transaxle for a car this spring. 02/06/2024 A good day would involve working on cars. He has restored 3 cars already. Plans to work on a transaxle for a car this spring. The patient's FEARS/WORRIES about illness are: Going back to the hospital 02/06/2024 Going back to the hospital The patient's PRIOR EXPERIENCES: He did not get involved with family during their serious illness, other family members handled it 02/06/2024 He did not get involved with family during their serious illness, other family members handled it Source: Content from [facility] Aligning Care With What Matters Most: No data to display Rationale for Decisions Source: Content from [facility] 5 minutes spent in direct [id number] discussion today, Lisa Turner RN * Pt Handout (not on AVS) - Lisa Turner RN - 02/06/2024 9:06 AM EDT [id number] Fall Prevention Falls often take place due to slipping, tripping, or losing your balance. Millions of people fall every year and injure themselves. Among older adults in the [place] falls are the most common cause of traumatic brain injuries. Every 20 minutes, an older adult dies from a fall. Here are ways to reduceyour risk of falling again: Think about your fall. Was there anything that caused your fall that can be fixed, removed, or replaced? Make your home safe by keeping walkways clear of objects you may trip over, such as electrical cords. Use nonslip pads under rugs. Don't use area rugs or small throw rugs. Use nonslip mats in bathtubs and showers. Hang grab rails by the toilet and inside and outside the shower. Install handrails and lights on staircases. The handrails should be on both sides of the stairs. Use night lights. Don't walk in poorly lit areas. Don't stand on chairs or wobbly ladders. Use care when reaching overhead or looking up. This position can cause a loss of balance. Be sure your shoes fit well, are in good condition, and have nonslip bottoms. Wear shoes both inside and outside of your home. Don't go barefoot or wear slippers. Be cautious when going up and down stairs, curbs, and when walking on uneven sidewalks. If your balance is poor, consider using a cane or walker. Talk with your healthcare provider about having a balance assessment. If your fall was related to alcohol use, stop or limit alcohol intake. Ask your provider for help if you think you may overuse alcohol and can't stop. If your fall was related to use of sleeping medicines, talk with your provider about this. You may need to reduce your dosage at bedtime if you wake up during the night to go to the bathroom. To reduce the need for nighttime bathroom trips: o Don't drink fluids for several hours before going to bed o Empty your bladder before going to bed o Men can keep a urinal at the bedside Stay as active as you can. Balance, flexibility, strength, and endurance all come from exercise.They all play a role in preventing falls. Ask your provider which types of activity are right for you. Try to do some type of exercise every day. Get your eyes checked once a year or more often if your vision changes If you have pets, know where they are before you stand up or walk so you don't trip over them. Go over all your medicines with a pharmacist or other provider. This is to see if any of them could make you more likely to fall. Have this type of medicine review at least once every year. If your provider advises a new medicine, ask if the side effects will affect your balance. Don't move quickly from one position to another. For instance, don't stand up fast from sitting.This can cause dizziness and may lead to a fall. Sit down when putting on pants, socks, and shoes. This will make you less likely to lose your balance and fall. Always let your provider know if you have fallen since your last visit. Contact your provider right away if you're having balance problems or falling more often. Last Reviewed Date: 11/27/202119999810-8824 [employer]. All rights reserved. This information is not intended as a substitute for professional medical care. Always follow your healthcare professional's instructions. * Pt Handout (not on AVS) - Lisa Turner RN - 02/06/2024 9:05 AM EDT Images from the original note were not included. [id number] Steps for Eating Healthier Changing the way you eat can improve your health. It can lower your cholesterol and blood pressure,and help you stay at a healthy weight. Your diet doesn?t have to be bland and boring to be healthy.Just watch your calories and follow these steps: Step 1. Eat fewer unhealthy fats Choose more fish and lean meats instead of fatty cuts of meat. Skip butter and lard, and use less margarine. Replace these with healthier fats, such as olive, canola, or avocado oils. Pass on foods that have palm, coconut, or partially hydrogenated oils. Eat fewer high-fat dairy foods like cheese, ice cream, and whole milk. Get a heart-healthy cookbook and try some new recipes. Step 2. Go light on salt Keep the saltshaker off the table. Limit high-salt ingredients, such as soy sauce, bouillon, and garlic salt. Instead of adding salt when cooking, season your food with herbs, spices, and other flavorings. Try lemon, garlic, onion, vinegar, or salt-free herb seasonings. Limit convenience foods, such as boxed or canned foods and restaurant food. Read food labels and choose lower-sodium options. Buy fresh, frozen, or canned vegetables that don't have added salt. Step 3. Limit sugar Pause before you add sugars to pancakes, cereal, coffee, or tea. This includes white and brown table sugar, syrup, honey, and molasses. Cut your usual amount by half. Swap out sugar-filled soda and other drinks. Buy sugar-free or low-calorie beverages. Remember, water is always the best choice. Try adding lemon juice to water for extra flavor. Read labels and choose foods with less added sugar. Keep in mind that dairy foods and foods withfruit will have some natural sugar. Cut the sugar in recipes by 1/3 to 1/2. Boost the flavor with extracts like almond, vanilla, or orange. Or add spices such as cinnamon or nutmeg. Step 4. Eat more fiber Eat fresh fruits and vegetables every day. Boost your diet with whole grains. Go for oats, whole-grain rice, and bran. Add beans and lentils to your meals. Drink more water to match your fiber increase to help prevent constipation. Step 5. Pay attention to serving sizes Remember that a serving size is a standard measurement. It will let you track the amount of fat,calories, and other nutrients in the food you eat. Read the Nutrition Facts label on packaged foods to learn their serving sizes. Use serving sizes to assess how much food you put on your plate. Pay attention to your portions.How many servings are you eating? Keep in mind that your needs may change if you?re more active or less active, or if you have other factors that change your calorie needs. Use your hand to help you measure serving sizes. For example: o 1 teaspoon: This is about the size of the first joint of your thumb. o 1 tablespoon: This is about the size of the first 2 joints of your thumb. o 1 ounce: This is about what you can fit in your cupped hand. o 2 to 3 ounces: This is about the size of the palm of your hand. o cup: This is also about what you can fit in your cupped hand. o 1 cup: This is about the size of your fist. Last Reviewed Date: 10/27/202219991316-0615 [employer]. All rights reserved. This information is not intended as a substitute for professional medical care. Always follow your healthcare professional's instructions. documented in this encounter Plan of Treatment Upcoming Encounters Date Type Department Care Team (Late st Contact Info) Description 08/22/2024 8:00 AM EDT Office Visit [facility], [place] [address] [place] [address] Kishor Molina MD [address] [place] [address] 02/11/2025 8:00 AM EDT Nurse Only Ancillary Department, [place] [address] [place] [address] [place], Nurse [facility] [address] [place] [address] Health Maintenance Due Date Last Done Comments Zoster Vaccines (1 of 2) 1990 COVID-19 Vaccine (2022- season) 2023 09/09/2022, 11/15/2021, 01/04/2021, Additional history exists Influenza Vaccine (FLU shot) (#1) 2023 08/31/2022, 08/17/2021, 08/14/2020 Depression Screening 01/28/2024 01/27/2023 GFR 02/19/2024 08/21/2023, 07/29, 01/26/2022, Additional history exists DTaP,Tdap,and Td Vaccines (2 - Td or Tdap) 03/10/2024 03/10/2014 Albumin/Creatinine Ratio 08/21/2024 08/21/2023, 07/29 CKD HGB USE SMARTSET 46133 08/21/202408/21, 01/29/2022, 01/29/2022, Additional history exists CKD PHOS USE SMARTSET [id number] 08/21/2024 08/21/2023, 0 01/26/2022 Pneumococcal Vaccine: 65+ Years Completed 09/14/2016, 09/27/2014, 12/30/2008 GARDASIL-HPV IMMUNIZATION SERIES Aged Out No longer eligible based on patient's age to complete this topic Hepatitis B Aged Out No longer eligi ble based on patient's age to complete this topic MENINGOCOCCAL (MENACTRA/MENVEO) Aged Out No longer eligible based on patient's age to complete this topic documented as of this encounter Medical Devices Not on filedocumented as of this encounter Visit Diagnoses Diagnosis Routine general medical examination at a health care facility- Primary Risk and functional assessment Screening for unspecified condition Dyslipidemia, goal LDL below 130 Other and unspecified hyperlipidemia Chronic kidney disease, stage 3a (HCC) MARGOT (generalized anxiety disorder) Generalized anxiety disorder documented in this encounter Care Teams Transitional Care Manager Relationship Specialty Start Date End Date Kishor Molina MD [address] [place] [address] PCP - General Family Medicine 01/04/19 documented as of this encounter
--- OUTSIDE RECORDS SUMMARY | 2024-03-31 04:35 | External Medical Summary | Summary of Care ---
Author Name Unknown Organization [facility] Address [address] [place] [address] Phone [phone] Care Team Providers Care Crystal Slicer Name Role Phone Kishor Molina MD Primary Care Provider [phone] Reason for Visit * Reason Onset Date Comments Advice 09/26/2023 Peeing dark yell ow & some blood Encounter Details Date Type Department Care Team (Late st Contact Info) Description 09/26/2023 Telephone [facility] [address] [place] [address] Kishor Molina MD [address] [place] [address] Advice (Peeing dark yellow & some blood) Allergies Active Allergy Reactions Criticality Noted Date Comments Salicylates 12/30/2008 Upset stomache Aspirin Abdominal pain 12/07/2007 Other reaction(s): Free Text upset stomach Yellow Fever Vaccine 12/30/2008 Passed out documented as of this encounter (statuses as of 12/26/2023) Medications No known medicationsdocumented as of this encounter (statuses as of 12/26/2023) Active Problems Problem Noted Date Diagnosed Date Chronic kidney disease, stage 3a 09/06/2021 Overview: Per CKD protocol MARGOT (generalized anxiety disorder) 03/15/2018 Essential tremor 09/14/2016 Dyslipidemia, goal LDL below 130 03/06/2013 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 Never true 01/28/20 23 Within the past 12 months, t he food you bought just didn't last and you didn't have money to get more. Never true 01/27/2023 Sex and Gender Information Value Date Recorded Sex Assigned at Not on file Gender Identity Male 01/27/2023 8:21 AM EST Sexual Orientation Straight 08/17/2021 8: 21 AM EDT Job Start Date Occupation Industry Not on file Not on file Not on file documented as of this encounter Miscellaneous Notes * Telephone Encounter - Jackson Tripathi MD - 09/27/2023 3:18 PM EDT Seen in office today. Jackson Tripathi MD * Telephone Encounter - Janna Mims LPN - 09/27/2023 10:29 AM EDT Called and spoke with pt. Pt states that he has used the bathroom twice today and has not noticed any blood. Urine still dark in color. Yesterday did have pain with urination, but no flank pain. States he has not had any pain today with urination Scheduled with Dr. Tripathi today at 2:00 * Telephone Encounter - Kishor Molina MD - 09/26/2023 5:18 PM EDT Flank pain? Any pain? Burning with urination? Fever? How long has it been present? * Telephone Encounter - Nidia More CCMA - 09/26/2023 4:09 PM EDT Please advise does patient needs to been seen urgently * Telephone Encounter - Kathy Marin OSA - 09/26/2023 3:44 PM EDT Pt is peeing dark yellow & has some blood in it. No Acute appt in [place] where the pt ONLY wants to go. Please call back documented in this encounter Plan of Treatment Upcoming Encounters Date Type Department Care Team (Late st Contact Info) Description 01/29/2024 10:30 AM EST Nurse Only Ancillary Department, [place] [address] [facility] [place] [address] [place], Nurse [facility] [address] [facility] [place] [address] 08/22/2024 8:00 AM EDT Office Visit Family Practice, [place] [address] [place] [facility] [place] [place] [place] [id number] Kihsor Molina MD [address] [facility] [place] [id number] Health Maintenance Due Date Last Done Comments Zoster Vaccines (1 of 2) 1990 COVID-19 Vaccine ( season) 2023 09/09/2022, 11/15/2021, 01/04/2021, Additional history exists Influenza Vaccine (FLU shot) (#1) 2023 08/31/2022, 08/17/2021, 08/14/2020 Depression Screening 01/28/2024 01/27/2023 GFR 02/19/2024 08/21/2023, 07/29, 01/26/2022, Additional history exists DTaP,Tdap,and Td Vaccines (2 - Td or Tdap) 03/10/2024 03/10/2014 Albumin/Creatinine Ratio 08/21/2024 08/21/2023, 07/29 CKD HGB USE SMARTSET 30653 08/21/202408/21, 01/29/2022, 01/29/2022, Additional history exists CKD PHOS USE SMARTSET [id number] 08/21/2024 08/21/2023, 0 01/26/2022 Pneumococcal Vaccine: 65+ [...] Not on filedocumented as of this encounter Care Teams Crystal Slicer Relationship Specialty Start Date End Date Kishor Molina MD [address] [place] [address] PCP - General Family Medicine 01/04/19 documented as of this encounter
[2024-03-31 07:10] LABS: Hematocrit (blood only) 40.1 % (42.0-52.0); Hemoglobin 13.5 g/dl (14.0-18.0); Mean Corpuscular Hemoglobin 29.9 pg (25.0-34.0); Mean Corpuscular Hgb Conc 33.7 g/dL (32.0-36.0); Mean Corpuscular Volume 88.9 fL (80.0-100.0); Mean Platelet Volume 12.5 fL (9.4-12.4); Platelet Count 79 K/uL (130-400); RDW Coefficient of Variation 13.5 % (11.5-14.5); RDW Standard Deviation 43.8 fL (36.4-46.3); Red Blood Count 4.51 M/uL (4.70-6.10); White Blood Count 3.16 K/ul (4.8-10.8)
[2024-03-31 07:35] LABS: BUN Creatinine Ratio 25.5 (10-20); Calcium 8.2 mg/dl (8.6-10.3); Creatinine Clr Calc Pharmacy 64.8 ml/min; Est GFR (African American) 74.9 ml/min; Est GFR (Non-African American) 64.6 ml/min; Magnesium 1.9 mg/dl (1.7-2.4); Phosphorus 2.7 mg/dl (2.5-4.9)
[2024-03-31 11:29] VITALS: BP 111/58; TEMP 98.1; O2SAT 93
--- NOTE | 2024-03-31 12:17 | Discharge Summary ---
Date of Service March 31, 2024 Admission HPI Per Admitting Provider History obtained from patient, family, and records. Limited history from patient secondary to disorientation. Medical history significant for hyperlipidemia, prediabetes, anxiety, tremors, past tobacco abuse. Patient woke up yesterday with chills and not feeling well. No chest pain, no cough, no SOB symptoms. Patient denies abdominal pain, vomiting, diarrhea symptoms. Not sure about sick contacts. Patient later noted to be more tired and somewhat confused by girlfriend. Patient brought to ER for evaluation. IV Zosyn administered at the ER. SBP 90 to 170s at the ER. Medical History as above Surgical History : None Family History : Prostate cancer, DM Personal/Social history : Past tobacco abuse, rare EtOH intake, lives with girlfriend Admission Exam Per Admitting Provider GENERAL: Disoriented, slightly uncomfortable, no respiratory distress SKIN: Normal color, warm HEENT: [place] palpebral conjunctivae, no ptosis, dry buccal mucosa NECK : Supple, no tenderness CHEST : CTA, no tenderness HEART : Tachycardic, no obvious murmurs ABDOMEN: Some distention, nontender EXTREMITIES : No LE swelling/tenderness, no other conspicuous deformities noted NEUROLOGIC : Disoriented, no facial asymmetry, somewhat restless, gait and stance not assessed Principal Diagnosis Tickborne illness, anaplasmosis Sepsis POA Rhinovirus URTI Metabolic encephalopathy Hypertension Discharge Exam GENERAL: oriented x3. NAD, on RA. Alert. HEENT: No pallor, no icterus. Pupils equal, round and reactive to light. Oral mucosa moist. NECK: No JVD, no neck masses. HEART: S1 and S2 heard. Regular rate and rhythm. No murmur, no gallop. RESPIRATORY SYSTEM: Normal AP diameter. No accessory muscle use. No wheezing, no crackles. ABDOMEN: Soft, bowel sounds present, nontender, no distention. CENTRAL NERVOUS SYSTEM: No facial droop. Speech is clear. Obeys simple commands. Moves extremities. EXTREMITIES: No edema, no erythema seen. 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 Discharge Data Allergies Allergy/AdvReac Type Severity Reaction Status Date / Time aspirin AdvReac Intermediate GI UPSET Verified 03/28/24 21:13 Consultations 03/28/24 21:39 ED Decision to Admit Stat Ordered Studies 03/28/24 19:55 CT head/brain wo con Stat Hospital Course (1) Encephalopathy: 83-year-old male with PMH of HLD, prediabetes, anxiety, tremors, past tobacco abuse presented to the ED 03/28 with complaint of chills, not feeling well for 1 day. Patient denied chest pain or cough or shortness of breath symptoms at presentation. Patient denies abdominal pain, nausea, vomiting, diarrhea. 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 He was managed for the following: Tickborne illness, anaplasmosis Sepsis POA: Temperature, pulse rate, respiratory rate elevated at presentation ISO anaplasmosis. Lactate and procalcitonin WNL. Sepsis likely secondary to above. Rhinovirus URTI Metabolic encephalopathy Patient coming in with not feeling well, chills. See above. At admission, patient's septic likely secondary to tickborne illness/anaplasmosis ECHO this admission reviewed. Patient started on doxycycline 03/29, continue to complete 10-day therapy. Patient has been afebrile for more than 24 hours, patient feels better and would like to go home. Patient is hemodynamically stable, reports eating okay/moving bowels okay/ambulating okay. Patient to follow-up with PCP in a week time upon discharge, patient has been made aware. Mild dehydration: Creatinine elevated at 1.45 at presentation, baseline around 1.25. Does not qualify definition of DESMOND. Status post fluid/crystalloid resuscitation. Creatinine improved. Erratic blood pressure/hypertension: Likely secondary to acute illness, will continue to monitor. Currently stable. Low-dose beta-kanwal initiated, continue to monitor. Low-dose beta-kanwal on discharge, patient advised to follow-up with PCP for long-term monitoring. Likely demand ischemia: Troponin elevated and mildly up trended at presentation, patient with no chest pain. Follow-up echo. Continue telemetry monitoring. Other chronic medical conditions: HLD, not on maintenance medication. Prediabetes: A1c 5.9 this admission. Continue to monitor as an outpatient Past tobacco abuse DVT prophylaxis. Heparin subcu Full code Patient is being discharged to home with following instruction at the point of discharge: Follow-up with your primary care physician within a week time and likely you will need labs CBC/CMP/magnesium/phosphorus. 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 Take doxycycline tablet with at least 8 ounces of water, stay upright for half an hour after taking the medication to avoid GI side effects. Avoid excessive sun exposure while on doxycycline, utilize sunscreen lotion appropriately. For your upper respiratory viral infection, if you have worsening cough or fever, contact your primary care office or emergency based on your symptom severity. Otherwise continue with rest and hydration. As discussed at the bedside, since your blood pressure is on the higher side, you are started on a small dose of blood pressure medication. Continue to measure your blood pressure twice a day to maintain a log to take to your primary care physician for ongoing/long-term monitoring of your blood pressure. Take your medications as prescribed. Please make sure that you are able to get your medications today by calling your pharmacy before you leave the hospital so that your treatment continuity is not broken. Text document was generated using [employer]ild voice recognition software. It may contain grammatical or spelling errors. Kindly contact undersigned for clarification of any documentation item in question. Home Health Attestation I certify that this patient is under my care and that I, or a physicians television production assistant working with me, had a face to-face encounter that meets the home health [id number] encounter requirements with this patient. The encounter with the patient was in whole, or in part, for the following medical condition, which is the primary reason for home health care (list medical condition): I certify that, based on my findings, the following services are medically necessary home health services: My clinical findings support the need for the above services because: Further, I certify that my clinical findings support that this patient is homebound (i.e. absences from home require considerable and taxing effort and are for medical reasons or sabianism services or infrequently or of short duration when for other reasons) because: Certification for Home Health Services: Based on the above findings, I certify that this patient is confined to the home and needs intermittent long-term care, physical therapy and/or speech therapy or continues to need occupational therapy. The patient is under my care, and I have initiated the establishment of the plan of care. This patient will be followed by a physician who will periodically review the plan of care. Total Time Total Time Spent Total Time Spent (In Minutes): 45 Discharge Plan Discharge Items Patient Disposition: Home - Self-Care Reason For Visit: ENCEPHALOPATHY, ARF Discharge Diagnosis: Tickborne illness, anaplasmosis Sepsis POA Rhinovirus URTI Metabolic encephalopathy Hypertension Activity: Resume your previous activity Non-emergency contact: Primary Care Provider Call non-emergency contact if: you have any medication questions, your symptoms worsen and your temperature is above 101.5 Follow-up/Referrals: John Parnell MD [Primary Care Provider] - Diet: Heart Healthy Addtl Attending Provider Instructions: Follow-up with your primary care physician within a week time and likely you will need labs CBC/CMP/magnesium/phosphorus. 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 Take doxycycline tablet with at least 8 ounces of water, stay upright for half an hour after taking the medication to avoid GI side effects. Avoid excessive sun exposure while on doxycycline, utilize sunscreen lotion appropriately. For your upper respiratory viral infection, if you have worsening cough or fever, contact your primary care office or emergency based on your symptom severity. Otherwise continue with rest and hydration. As discussed at the bedside, since your blood pressure is on the higher side, you are started on a small dose of blood pressure medication. Continue to measure your blood pressure twice a day to maintain a log to take to your primary care physician for ongoing/long-term monitoring of your blood pressure. Take your medications as prescribed. Please make sure that you are able to get your medications today by calling your pharmacy before you leave the hospital so that your treatment continuity is not broken. Pending Studies at Discharge: Yes Stand-Alone Forms: [facility] [employer], Smoking Cessation Medications and DC Order Prescriptions: New metoprolol succinate 25 mg tablet extended release 24 hr 12.5 mg PO DAILY Qty: 15 0RF doxycycline hyclate 100 mg Capsule 100 mg PO BID 8 Days Qty: 16 0RF Continued ibuprofen [Advil] 200 mg Tablet 400 mg PO DIRECTED PRN (Reason: PAIN/FEVER) Discharge Orders: Discharge Order (Routine); Ordered 03/31/24 Ordered By: Sue Maher Admission Data Admit Date/Time: 03/28/24 23:15 Attending Provider: Sue Maher Admit Provider: Amaury Khan Primary Care Provider: John Parnell Other Providers: Amaury Khan
[2024-03-31 14:23] VITALS: PULSE 61
--- NOTE | 2024-03-31 21:30 | Electrocardiogram Report ---
Test Reason : Blood Pressure : / mmHG Vent. Rate : 108 BPM Atrial Rate : 108 BPM P-R Int : 152 ms QRS Dur : 076 ms QT Int : 322 ms P-R-T Axes : 033 002 068 degrees QTc Int : 431 ms Sinus tachycardia with frequent Premature ventricular complexes Cannot rule out Anterior infarct , age undetermined Abnormal ECG When compared with ECG of 25-OCT-2017 15:07, Premature ventricular complexes are now Present Vent. rate has increased BY 44 BPM Minimal criteria for Anterior infarct are now Present Confirmed by Praneeth Castro ([id number]) on 03/31/2024 9:30:38 PM Referred By: REFERRED SELF Confirmed By:Praneeth Castro
== END 2024-03-31 16:02 | disposition home or self-care (01) | DRG 871 ==
LOC: ED 17:48 → EDINP 23:15 → 2N 03-29 00:36